=== PATIENT | female | born 2005 | race African-American/Black ===

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

== ENCOUNTER 2025-02-09 12:06 | Outpatient (CLI) | payer OTHER, SELFPAY ==
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
[2025-02-09 13:31] LABS: Hematocrit 34.7 % (37.0-47.0); Hemoglobin 10.9 g/dL (12.0-15.0); Mean Corpuscular HGB Conc 31.4 g/dl (32-36); Mean Corpuscular Hemoglobin 23.6 pg (26-34); Mean Corpuscular Volume 75.1 fl (80-100); Mean Platelet Volume 11.3 fl (7.4-10.4); Platelet Count Result 209 k/mm3 (150-375); Red Blood Count 4.62 M/mm3 (4.2-5.4); Red Cell Distribution Width 17.4 % (11.5-14.5); White Blood Count 9.1 K/mm3 (4.5-10.0)
[2025-02-09 13:39] LABS: Glucose 1 Hour PP 50gm Dose 120 mg/dL
[2025-02-09 14:02] LABS: Iron 44 ug/dL (37-170)
[2025-02-09 14:11] LABS: Percent Iron Saturation 11 % (20-50)
[2025-02-09 14:20] LABS: HIV 1/2 Ab P24 Ag Result Negative (Negative)
[2025-02-09 14:27] LABS: Syphilis IgG/IgM Antibody Negative (Negative)
[2025-02-13 17:43] LABS: Hepatitis B DNA PCR NOT DETECTED (NOT DETECTED); Hepatitis B DNA PCR NOT DETECTED Log IU/mL (NOT DETECTED)
== END 2025-02-09 12:07 | disposition home or self-care (01) ==
LOC: ANHLAB 12:07
PROVIDERS: Visit Provider Student in an Organized Health Care Education/Training Program
DX: O99.019 Anemia complicating pregnancy, unspecified trimester (principal); Z3A.00 Weeks of gestation of pregnancy not specified; R76.8 Other specified abnormal immunological findings in serum; Z39.0 Encounter for care and examination of mother immediately after delivery
CPT/HCPCS: 36415; 82947; 83540; 83550; 85027; 86593; 86703; 87517; G0432

== ENCOUNTER 2025-03-11 04:57 | Outpatient (CLI) | payer OTHER, SELFPAY ==
--- OUTSIDE RECORDS SUMMARY | 2025-03-11 02:35 | XMS_ITS | Clinical Summary ---
Author Organization [facility] Address [address] [place] [address] Care Team Providers Care Mail Distribution Clerk Name Role Phone Unavailable Primary Care Provider Unavailabl e Source Comments [facility],non-owned Affiliates and Associated Physician Practices is amultiple site organization consisting of ambulatory clinics and hospital sitesin [place], [place], [place] and [place]. This disclosure is being madepursuant to the Care Everywhere program and may not contain all information available regarding this patient. Last updated 18.[facility] Allergies No known active allergies Medications * This document contains information received from the source organization and may not represent a complete record from that organization. * Be aware that medications may not be up to date on this document. Alwaysverify current medications with the patient. Vit-DSS-Fe Fum-FA ( vitamin with iron) tablet Take 1 (one) tablet by mouth once daily Active ferrous sulfate 325 (65 FE) MG tablet Take 1 (one) tablet by mouth once daily Active aspirin (Aspirin) 81 MG chew tabletIndicatio ns:Preeclampsia Take 2 (two) tablets by mouth once daily Reasons: Increased Blood Pressure and Edema During 100 tablet 4 Active Active Problems Problem Noted Date Diagnosed [...] 12/23/2021 Assessment & Plan (12/26/2021 4:15 PM [facility]): Assessment: Charles is a 16 year old female who [...] afternoon Assessment & Plan (12/25/2021 1:34 PM [facility]): Assessment: Charles is a 16 year old female who [...] facility Assessment & Plan (12/24/2021 3:46 PM [facility]): Assessment: Charles is a 16 year old female who [...] consultation Assessment & Plan (12/23/2021 10:40 PM [facility]): Assessment: Charles is a 16 year old female who [...] 12/23/2021 Assessment & Plan (12/26/2021 4:15 PM [facility]): Assessment: Karans CBC with a low hemoglobin [...] persists Assessment & Plan (12/25/2021 1:35 PM [facility]): Assessment: Karans CBC with a low hemoglobin [...] persists Assessment & Plan (12/24/2021 1:33 PM [facility]): Assessment: Julio César CBC with a low hemoglobin (8.8) and low MCV is concerning for iron deficiency anemia. This is likely due to inadequate dietary intake of iron. Plan: - start MVI with iron - nutrition consultation Assessment & Plan (12/23/2021 10:41 PM [facility]): Assessment: Julio César CBC with a low [...] 01/06/2022 Assessment & Plan (12/26/2021 4:17 PM [facility]): Assessment: Karans initial UA at the outside hospital was concerning for a UTI with nitrites and some WBC with repeat UA at [facility] negative for nitrites but with evidence of pyuria with WBC and urine culture grew >100k cfus e coli. Plan to treat with course of nitrofurantoin. Plan: - Prescription for course of nitrofurantoin provided to continue at discharge Assessment & Plan (12/25/2021 1:35 PM [facility]): Assessment: Karans initial UA at the outside hospital was concerning for a UTI with nitrites and some WBC, however, there were many squamous epithelial cells present which makes the specimen less reliable. She is not currently complaining of symptoms of a UTI. Repeat UA here was negative for LE and nitrites. Plan: - continue to monitor - Urine culture at [facility] pending Assessment & Plan (12/24/2021 1:33 PM [facility]): Assessment: Charles's initial UA at the outside hospital was concerning for a UTI, however, there were many squamous epithelial cells present which makes the specimen less reliable. She is not currently complaining of symptoms of a UTI. Repeat UA here was negative for LE and nitrites. Plan: - continue to monitor Assessment & Plan (12/23/2021 10:42 PM [facility]): Assessment: Charles's initial UA at the outside hospital was concerning for a UTI, however, there were many squamous epithelial cells present which makes the specimen less reliable. She is not currently complaining of symptoms of a UTI. Plan: - repeat UA with reflex to culture here - consider treating for UTI if repeat UA concerning Encounters Date Type Department Care Team Description 02/12/2025 9:45 AM CDT - 02/12/2025 11:59 PM CDT Hospital Encounter [facility] [address] [place] [phone] Savage Contreras MD Discharge Disposition: Home or Self Care 01/15/2025 9:45 AM [facility] - 01/15/2025 11:59 PM [facility] Hospital Encounter [facility] [address] [place] [phone] Savage Contreras MD Discharge Disposition: Home or Self Care 12/19/2024 Refill [facility] [address] [place] [address] [address] [place] [address] Valeriy Brooks, Refill Request 12/11/2024 9:00 AM [facility] - 12/11/2024 11:59 PM [facility] Hospital Encounter [facility] [address] [place] [phone] Head, Eva Magaña MD Discharge Disposition: Home or Self Care from Last 3 Months Immunizations Immunization Administration Dates Next Due DTAP/IPV 06/02/2010 DTaP VACCINE IM (6wk-6yrs) 09/27/2006,,2005, 5 HEP A PEDS 2 DOSE 03/25/2009,06/13/2007 HEP B VACCINE, PED/ADOL 2005,07/21,2005, 5 HIB BOOSTER 07/13/2006, 5,2005, 5 MENINGOCOCCAL ACWY (MCV4P) VAC IM 04/30/2021, MMR 03/25/2009,03/04/2006 PNEUMOCOCCAL CONJ, PEDS 03/04/2006,09/14,2005, 5 POLIO IPV 2005,2005,2005 PPD 07/15/2009,03/04/2006 TDAP (7yrs+) [...] Recorded Sex Assigned at Not on file Legal Sex Female 5:44 AM [facility] Gender Identity Not on file Sexual Orientation Not on file Last Filed Vital Signs Vital Sign Reading Time Taken Comments Blood Pressure 122/55 11/13/2024 10:36 AM [facility] Pulse 71 11/13/2024 10:36 AM [facility] Temperature 36.3 C (97.4 F) 03/05/2022 2:12 PM CDT Respiratory Rate 16 12/31/2021 1:57 PM [facility] Oxygen Saturation 100% 12/31/2021 1:57 PM [facility] Inhaled Oxygen Concentration - - Weight 113.4 kg (250 lb) 11/13/2024 10:36 AM [facility] Height 168.9 cm (5' 6.5 ) 11/13/2024 10:36 AM CS T Body Mass Index 39.75 11/13/2024 10:36 AM [facility] Plan of Treatment Health Maintenance Due Date Last Done Comments PNEUMOCOCCAL VACCINE (1 of 1 - PPSV23) 2011 03/04/2006, 2005, 2005, Additional history exists MENINGOCOCCAL (Group B) VACC INE SHARED DECISION-MAKING (1 of 2 - Standard) 2021 CHLAMYDIA/GONORRHEA SCREENING 01/27/2023 01/27/2022, 12/28/2021 HEPATITIS C SCREENING 02/21/2023 COVID-19 VACCINE (3 - 2023-2 5 season) 2024 07/10/2021, 06/19/2021 DEPRESSION SCREENING 11/22/2024 OB-ONE HOUR GLUCOSE 01/13/2025 OB-TDAP CURRENT 01/20/2025 03/04/2015 OB-RHOGAM INJECTION 01/27/2025 DTAP/TDAP/TD VACCINES (7 - T d or Tdap) 03/04/2025 03/04/2015, 06/02/2010, 09/27/2006, Additional history exists OB-GROUP B STREP SCREEN 03/17/2025 INFLUENZA VACCINE (Season Ended) 2025 ZOSTER VACCINE (1 of 2) 2055 HEPATITIS [...] Where can I go for more information? [place] [employer] ( ) www.aap.org HealthyChildren.org www.healthychildren.org U.S. Department of Health and Human Services www.hhs.gov Website and free downloadable frankie for Tripnarys: http://www.MyCoop/ Use safety retraint in car Lifestyle On track( 022 2:08 PM CDT) No Bailey Tomlinson RN Procedures Procedure Name Priority Date/Time Associated Diagnosis Comments SONOGRAM - COMPLETE Routine 02/12/2025 9:41 AM CDT Liver and biliary tract disorders in , second trimester (HCC): hepeattis B surface antigen positive BMI 39.0-39.9,adult Anemia complicating in second trimester 29 weeks gestation of Encounter for follow-up ultrasound of anatomy Encounter for ultrasound to assess growth [place]-Schlatter's disease, right SONOGRAM - COMPLETE Routine 01/15/2025 9:36 AM [facility] Liver and biliary tract disorders in , second trimester (HCC): hepeattis B surface antigen positive Anemia complicating in second trimester High risk teen , antepartum BMI 39.0-39.9,adult 25 weeks gestation of SONOGRAM - COMPLETE Routine 12/11/2024 9:07 AM [facility] Severe obesity due to excess calories affecting in second trimester Anemia complicating in second trimester High risk teen , antepartum Encounter for follow-up ultrasound of anatomy Encounter for ultrasound to assess growth Encounter for screening for cervical length CHLAMYDIA + GC AMPLIFIED PROBE Routine 01/27/2022 4:24 PM [facility] Hx of chlamydia infection HIV-1 HIV-2 ANTIBODY + HIV P24 AG PANEL AM Draw 12/28/2021 6:25 AM [facility] from Last 3 Months or Most Recently Relevant to Health Maintenance Results * SONOGRAM - COMPLETE (02/12/2025 9:41 AM CDT) Only the most recent of3 resultswithin the time period is included. Linked Results Indication ======== Obesity, Class III Positive Hepatitis B Antibody and Antigen, negative viral quant. Anemia History ====== OB History 1 Lab Tests Test Date Result Genetic screening Declined Maternal Assessment Physical Exam Height 168 cm, 5 ft 6 in. Weight 120 kg, 264 lb. Initial weight 112 kg, 247 lb. BMI 42.61 kg/m . Initial BMI 39.87 kg/m . Weight gain 8 kg, 17 lb Method ====== Transabdominal ultrasound. View: Sufficient ========= Truong . Number of fetuses: 1 Dating ====== Date Details Gest. age LILI LMP 07/15/2024 30 w + 2 d 04/21/2025 Stated LILI 30 w + 2 d 04/21/2025 U/S 02/12/2025 based upon AC, BPD, Femur, HC 29 w + 4 d 04/26/2025 Assigned dating based on the LMP, selected on 11/13/2024 30 w + 2 d 04/21/2025 General Evaluation Cardiac activity present. FHR 141 bpm. Presentation: cephalic Placenta: Placental site: anterior Umbilical cord: Cord vessels: 3 vessel cord. Insertion site: normal insertion Amniotic fluid: Amount of AF: normal. MVP 4.6 cm. RODY 16.3 cm. Q1 4.6 cm, Q2 4.0 cm, Q3 4.2 cm, Q4 3.6 cm Biometry BPD 72.0 mm 28w 6d 7% Hadlock HC 273.1 mm 29w 6d 8% Hadlock AC 257.6 mm 29w 6d 34% Hadlock Femur 55.9 mm 29w 3d 15% Hadlock Humerus 55.1 mm 32w 0d 89% Redd HC / AC 1.06 Weight Calculation: EFW 1,434 g 20% Hadlock EFW (lb,oz) 3 lb 3 oz EFW by Hadlock (FPR-NT-LI-FL) appropriate Growth Overview Exam date GA BPD (mm) HC (mm) AC (mm) FL (mm) HL (mm) EFW (g) 11/13/2024 17w 2d 34.2 18% 126.8 7% 109.8 34% 22.9 29% 28.1 97% 170 19% 12/11/2024 21w 2d 46.4 8% 174.7 4% 158.1 32% 34.1 22% 35.9 83% 373 19% 01/15/2025 26w 2d 61.3 6% 232 4% 212.3 25% 45.7 9% 47.8 91% 810 13% 02/12/2025 30w 2d 72 7% 273.1 8% 257.6 34% 55.9 15% 55.1 89% 1434 20% Anatomy The following structures appear normal: Heart / Thorax 5-[id number] view. Abdomen Stomach. Kidneys. Bladder. The following structures were documented previously: Head / Neck Cranium. Lateral ventricles. Choroid plexus. Midline falx. Cavum septi pellucidi. Cerebellum. Cisterna magna. Thalami. Nuchal fold. Face Lips. Profile. Nose. Nasal bone. Orbits. Heart / Thorax 4-chamber view. RVOT view. LVOT view. 3-vessel view. Situs. Aortic arch view. Bicaval view. Ductal arch view. Great vessels. Right lung. Left lung. Diaphragm. Abdomen Cord insertion. Bowel. Genitals. Spine Cervical spine. Thoracic spine. Lumbar spine. Sacral spine. Extremities / Skeleton Arms. Hands. Legs. Feet. sex: male. Impression ========= Single, live, intrauterine at 30w 2d size is appropriate Amniotic fluid volume: normal No major malformations were seen within the limitations of ultrasound Follow-up ======== Follow up ultrasound in 4 weeks for growth assessment Coding ====== Procedures [id number]: US Preg Uterus Follow Up hreefold Photos PACS Anatomical Region Laterality Modality Other 02/12/2025 9:41 AM CDT us Edouard Abraham MD [facility] ORDERABLES Edited Result - Final * CHLAMYDIA + GC AMPLIFIED PROBE (01/27/2022 4:24 PM [facility]) Pathologist [facility] Chlamydia KADIE Urine Negative Negative [facility] INSURANCE BILL GC KADIE Urine Negative Negative [facility] INSURANCE BILL Microbiology URINE / Unknown 01/27/2022 4 :24 PM [facility] 01/28/2022 Narrative Resulting Agency Comment Lab Testing performed at: [address] [phone] [place] Juliet Agustin MD LAB - MICROBIOLOGY ORDERABLES Final Result [facility] INSURANCE BILL [address] [address] * HIV-1 HIV-2 ANTIBODY + HIV P24 AG PANEL (12/28/2021 6:25 AM [facility]) HIV1/2 Ab + P24 Ag Non Reactive Non Reactive 12/28/2021 6:30 PM [facility] Blood BLOOD SPECIMEN / Unknown Lab Venipuncture / Unknown 12/28/2021 6:25 AM [facility] 12/28/2021 7:30 AM [facility] Narrative [facility] - 12/28/2021 6:30 PM [facility] No Laboratory evidence of HIV infection. Faith Sommer MD LAB - CHEMISTRY ORDERABLES Final Result Performing Organization Address City/State/[facility] Co de Phone Number [facility] [address] [place] [address] from Last 3 Months or Most Recently Relevant to Health Maintenance Insurance [facility] * Guarantor: CHARLES AN Account Type Relation to Patient Date of Phone Billing Address Personal/Family [address] [place] [address] Advance Directives * Full Code (Latest Code Status on File) Date Activated Date Inactivated Comments 12/26/2021 4:57 PM 12/31/2021 5:12 PM * Full Code Date Activated Date Inactivated Comments 12/23/2021 8:34 PM 12/26/2021 4:45 PM
[2025-03-11 02:47] VITALS: BP 147/82; PULSE 90; RESP 15; TEMP 36.4; O2SAT 100
[2025-03-11 03:30] LABS: Basophils Percent Auto 0.2 % (0.2-1.2); Eosinophils Absolute Auto 0.1 K/mm3 (0-0.3); Hematocrit 36.2 % (37.0-47.0); Hemoglobin 10.9 g/dL (12.0-15.0); Immature Granulocyte Absolute 0.06 K/mm3 (0.00-0.031); Immature Granulocyte Percent A 0.5 % (0-0.5); Lymphocytes Absolute Auto 1.57 K/mm3 (0.9-3.2); Lymphocytes Percent Auto 12.6 % (18.3-44.2); Mean Corpuscular HGB Conc 30.1 g/dl (32-36); Mean Corpuscular Volume 76.5 fl (80-100); Mean Platelet Volume 11.3 fl (7.4-10.4); Monocytes Absolute Auto 0.8 K/mm3 (0.1-0.6); Monocytes Percent Auto 6.4 % (2.6-8.5); Neutrophils Absolute Auto 9.8 K/mm3 (1.3-6.7); Neutrophils Percent Auto 79.3 % (45.5-73.1); Platelet Count Result 206 k/mm3 (150-375); Red Blood Count 4.73 M/mm3 (4.2-5.4); Red Cell Distribution Width 16.9 % (11.5-14.5); White Blood Count 12.4 K/mm3 (4.5-10.0)
[2025-03-11] MEDS: ACETAMINOPHEN 500 MG TABLET 1000 MG PO (03:30)
[2025-03-11] MEDS: diphenhydrAMINE HCl INJ 50 MG/ML VIAL 25 MG IV PUSH (03:30)
[2025-03-11] MEDS: METOCLOPRAMIDE HCL INJ 10 MG/2 ML VIAL IV PUSH (03:31)
--- NOTE | 2025-03-11 03:32 | ED_ITS ---
HPI - General Adult General Chief complaint: Headache Stated complaint: headache Time Seen by Provider: 03/11/25 02:50 History of Present Illness HPI narrative: Patient is a 20 year old female who presents the emergency department this evening with headache, nausea vomiting and blurry vision. Patient states that she is achy all over. Feels nauseous,. Difficult to obtain history from the patient as she just feels uncomfortable and is a poor historian. Patient is approximately a month , sees Dr. Abraham as her OBGYN. States that her symptoms started yesterday around 6:00 p.m.. States that they have been monitoring her blood pressure through this but she was not told that she was preeclamptic or started on any medications for blood pressure. Related Data Home Medications ?Medication ?Instructions ?Recorded ?Confirmed ?Last Taken ?Type aspirin 81 mg tablet,delayed 81 mg PO DAILY 11/24/24 02/28/25 Unknown History release (Adult Low Dose Aspirin) Allergies Allergy/AdvReac Type Severity Reaction Status Date / Time No Known Allergies Allergy Verified 03/11/25 02:34 Review of Systems 2 Review of Systems: All systems are reviewed and are negative unless stated otherwise in the HPI. [facility] Past Medical History Medical History Healthy female adult Surgical History Surgical History No history of previous surgery Social History Social History Smoking status: Former smoker Tobacco type: e-cigarettes/vaping Alcohol intake: never Substance use: never Substance use type: does not use Do You Feel Safe in your Home?: Yes Lack of Transportation: No Lack of Food: Never True Current Housing: Decline to Answer Concerned About Future Housing: Decline to Answer Difficulty Paying Gas/Electric Bills: Decline to Answer Difficulty Paying for Meds: Decline to Answer Currently Unemployed: Decline to Answer Education: Decline to Answer Difficulty w/ Childcare or Family Care: Decline to Answer Living arrangements: with family Occupation/Education: occupation Gender identity (if verbalized by the patient): Female Sexual Orientation (if Verbalized by the Patient): Straight or Heterosexual Exam 2 Narrative: General: Alert, awake, afebrile, uncomfortable. HEENT: PERRL, no rhinorrhea, no post nasal drip, oropharynx clear. Neck: Trachea midline, no JVD, no lymphadenopathy. Cardiovascular: Regular rate and rhythm, no murmurs, rubs or gallops, no peripheral edema. Respiratory: Clear to auscultation bilaterally, no tachypnea, no wheezing, no rhonchi, no rubs, no respiratory distress. Abdomen: Gravid, nontender, nondistended, no rebound, no guarding, no peritoneal signs. Musculoskeletal: No joint swelling or deformity, normal muscle tone. Skin: No rashes or petechia, no signs of infection. Psychiatric: Alert and oriented, normal behavior and judgment for situation. Neurological: Alert and oriented to person, place, and time. Follows all commands. No focal deficits, speech is clear and fluent. Course Vital Signs Vital signs: Vital Signs Temperature 97.6 F 03/11/25 02:47 Pulse Rate 90 03/11/25 02:47 Respiratory Rate 15 03/11/25 02:47 Blood Pressure 147/82 H 03/11/25 02:47 Pulse Oximetry 100 03/11/25 02:47 Oxygen Delivery Room Air 03/11/25 02:47 Temperature 97.6 F 03/11/25 02:47 Pulse Rate 84 03/11/25 03:40 Respiratory Rate 15 03/11/25 03:40 Blood Pressure 142/84 H 03/11/25 03:40 Pulse Oximetry 99 03/11/25 03:40 Oxygen Delivery Room Air 03/11/25 02:47 Medical Decision Making [facility] Narrative Medical decision making narrative: The patient was evaluated by myself in the emergency department. History is obtained from patient who is an independent historian and physical exam was performed. External medical records were reviewed at this time. IV was established and pertinent tests were ordered. Patient was administered 1 L IV fluid bolus with normal saline, a g of Tylenol, 10 mg of IV Reglan and 25 mg of IV Benadryl. Laboratory results obtained revealing a leukocytosis of 12.4, otherwise unremarkable. LDH noted to be normal at 149, uric acid normal 3.9, magnesium level 1.8. Urinalysis pending. Differential diagnosis considerations include preeclampsia, dehydration, acute viral syndrome. Comorbidities impacting this visit include current 3rd trimester . I have evaluated and discussed social determinants of health with the patient that could potentially impact subsequent diagnosis and treatment plans. In the emergency department, patient's blood pressure fluctuates anywhere between 130/70 to 157/126 mmHg. Patient was sent to [facility] at this time due to concern for preeclampsia. Vital Signs Vital Signs: Vital Signs Temperature 97.6 F 03/11/25 02:47 Pulse Rate 90 03/11/25 02:47 Respiratory Rate 15 03/11/25 02:47 Blood Pressure 147/82 H 03/11/25 02:47 Pulse Oximetry 100 03/11/25 02:47 Oxygen Delivery Room Air 03/11/25 02:47 Temperature 97.6 F 03/11/25 02:47 Pulse Rate 84 03/11/25 03:40 Respiratory Rate 15 03/11/25 03:40 Blood Pressure 142/84 H 03/11/25 03:40 Pulse Oximetry 99 03/11/25 03:40 Oxygen Delivery Room Air 03/11/25 02:47 Lab Data 03/11/25 03:24 03/11/25 03:24 Labs: Lab Results 03/11/25 Range/Units 03:24 WBC 12.4 H (4.5-10.0) K/mm3 RBC 4.73 (4.2-5.4) M/mm3 Hgb 10.9 L (12.0-15.0) g/dL Hct 36.2 L (37.0-47.0) % MCV 76.5 L (80-100) fl MCH 23.0 L (26-34) pg MCHC 30.1 L (32-36) g/dl RDW 16.9 H (11.5-14.5) % Plt Count 206 (150-375) k/mm3 MPV 11.3 H (7.4-10.4) fl Immature Gran % (Auto) 0.5 (0-0.5) % Neut % (Auto) 79.3 H (45.5-73.1) % Lymph % (Auto) 12.6 L (18.3-44.2) % [place] % (Auto) 6.4 (2.6-8.5) % Eos % (Auto) 1.0 (0-4.4) % Baso % (Auto) 0.2 (0.2-1.2) % Lymph # (Auto) 1.57 (0.9-3.2) K/mm3 [place] # (Auto) 0.8 H (0.1-0.6) K/mm3 Eos # (Auto) 0.1 (0-0.3) K/mm3 Baso # (Auto) 0.0 (0.0-0.1) K/mm3 Abs Immat Gran (auto) 0.06 H (0.00-0.031) K/mm3 Absolute Neuts (auto) 9.8 H (1.3-6.7) K/mm3 Absolute Nucleated RBC 0.000 (0.0-0.012) K/mm3 Nucleated RBC % 0.0 (0.0-0.2) % Sodium 139 (137-145) mmol/L Potassium 3.8 (3.4-5.0) mmol/L Chloride 105 (98-107) mmol/L Carbon Dioxide 24 (22-30) mmol/L Anion Gap 10 (4-12) mmol/L BUN 4 L (7-17) mg/dL Creatinine 0.54 L (0.7-1.0) mg/dL Estim Creat Clear Calc 190 ml/min Estimated GFR > 60 (59 - ) Glucose 104 (65-110) mg/dL Uric Acid 3.9 (2.5-7.5) mg/dL Calcium 9.4 (8.4-10.2) mg/dL Magnesium 1.8 (1.6-2.3) mg/dL Total Bilirubin 0.2 (0.2-1.3) mg/dL AST 25 (14-36) U/L ALT 17 (6-35) U/L Alkaline Phosphatase 90 (38-126) U/L Lactate Dehydrogenase 149 (120-246) U/L Total Protein 7.0 (6.3-8.2) g/dL Albumin 3.9 (3.5-5.1) g/dL Discharge Plan Discharge Clinical Impression: Hypertension, Migraine, Vision changes, Pre-eclampsia Patient Disposition: Still a Patient Condition: Stable Patient Language: Slovak Prescriptions: No Action ferrous sulfate 324 mg (65 mg iron) tablet,delayed release (DR/EC) 324 mg PO DAILY Qty: 30 3RF PNV #[id number] 30 mg iron-10 mg iron-1 mg capsule 1 cap PO DAILY Qty: 30 3RF Rx Instructions: Any brand of is fine. aspirin [Adult Low Dose Aspirin] 81 mg tablet,delayed release (DR/EC) 81 mg PO DAILY triamcinolone acetonide 0.025 % lotion 1 applic topical BID Qty: 60 0RF Follow-up/Referrals: PHYSICIAN,MEDICAL SCIENTIST [Primary Care Provider] - Time of Disposition: 04:44
[2025-03-11] MEDS: SODIUM CHLORIDE 0.9% IV 1,000 ML 999 ML IV CONT (03:33)
[2025-03-11 03:40] VITALS: BP 142/84; PULSE 84; RESP 15; O2SAT 99
[2025-03-11 03:47] LABS: Alanine Aminotransferase 17 U/L (6-35); Albumin Level 3.9 g/dL (3.5-5.1); Alkaline Phosphatase 90 U/L (38-126); Anion Gap 10 mmol/L (4-12); Aspartate Amino Transferase 25 U/L (14-36); Bilirubin,Total 0.2 mg/dL (0.2-1.3); Blood Urea Nitrogen 4 mg/dL (7-17); Calcium 9.4 mg/dL (8.4-10.2); Carbon Dioxide 24 mmol/L (22-30); Chloride 105 mmol/L (98-107); Estimated CRCL calculation 190 ml/min; Estimated Glomerular Filt Rate > 60; Glucose 104 mg/dL (65-110); Lactate Dehydrogenase 149 U/L (120-246); Magnesium 1.8 mg/dL (1.6-2.3); Potassium 3.8 mmol/L (3.4-5.0); Sodium 139 mmol/L (137-145); Uric Acid 3.9 mg/dL (2.5-7.5)
[2025-03-11 04:59] VITALS: BP 101/64; PULSE 88; RESP 16; O2SAT 98
--- OUTSIDE RECORDS SUMMARY | 2025-03-11 05:09 | XMS_ITS | Clinical Summary ---
Author Organization [facility] Address [address] [place] [address] Care Team Providers Care Instructional Technology Specialist Name Role Phone Unavailable Primary Care Provider Unavailabl e Source Comments [facility],non-owned Affiliates and Associated Physician Practices is amultiple site organization consisting of ambulatory clinics and hospital sitesin [place], [place], [place] and [place]. This disclosure is being madepursuant to the Care Everywhere program and may not contain all information available regarding this patient. Last updated 18.[facility] Allergies No known active allergies Medications * [...] 12/23/2021 Assessment & Plan (12/26/2021 4:15 PM ADAPTED PHYSICAL EDUCATION TEACHER): Assessment: Charles is a 16 year old [...] afternoon Assessment & Plan (12/25/2021 1:34 PM ADAPTED PHYSICAL EDUCATION TEACHER): Assessment: Charles is a 16 year old [...] facility Assessment & Plan (12/24/2021 3:46 PM ADAPTED PHYSICAL EDUCATION TEACHER): Assessment: Charles is a 16 year old [...] consultation Assessment & Plan (12/23/2021 10:40 PM ADAPTED PHYSICAL EDUCATION TEACHER): Assessment: Charles is a 16 year old [...] 12/23/2021 Assessment & Plan (12/26/2021 4:15 PM ADAPTED PHYSICAL EDUCATION TEACHER): Assessment: Karans CBC with a low hemoglobin [...] persists Assessment & Plan (12/25/2021 1:35 PM ADAPTED PHYSICAL EDUCATION TEACHER): Assessment: Karans CBC with a low hemoglobin [...] persists Assessment & Plan (12/24/2021 1:33 PM ADAPTED PHYSICAL EDUCATION TEACHER): Assessment: Julio César CBC with a low hemoglobin (8.8) and low MCV is concerning for iron deficiency anemia. This is likely due to inadequate dietary intake of iron. Plan: - start MVI with iron - nutrition consultation Assessment & Plan (12/23/2021 10:41 PM ADAPTED PHYSICAL EDUCATION TEACHER): Assessment: Julio César CBC with a low [...] 01/06/2022 Assessment & Plan (12/26/2021 4:17 PM ADAPTED PHYSICAL EDUCATION TEACHER): Assessment: Karans initial UA at the outside hospital was concerning for a UTI with nitrites and some WBC with repeat UA at [facility] negative for nitrites but with evidence of pyuria with WBC and urine culture grew >100k cfus e coli. Plan to treat with course of nitrofurantoin. Plan: - Prescription for course of nitrofurantoin provided to continue at discharge Assessment & Plan (12/25/2021 1:35 PM ADAPTED PHYSICAL EDUCATION TEACHER): Assessment: Karans initial UA at the outside hospital was concerning for a UTI with nitrites and some WBC, however, there were many squamous epithelial cells present which makes the specimen less reliable. She is not currently complaining of symptoms of a UTI. Repeat UA here was negative for LE and nitrites. Plan: - continue to monitor - Urine culture at [facility] pending Assessment & Plan (12/24/2021 1:33 PM ADAPTED PHYSICAL EDUCATION TEACHER): Assessment: Charles's initial UA at the outside hospital was concerning for a UTI, however, there were many squamous epithelial cells present which makes the specimen less reliable. She is not currently complaining of symptoms of a UTI. Repeat UA here was negative for LE and nitrites. Plan: - continue to monitor Assessment & Plan (12/23/2021 10:42 PM ADAPTED PHYSICAL EDUCATION TEACHER): Assessment: Charles's initial UA at the outside [...] - 02/12/2025 11:59 PM CDT Hospital Encounter [facility] [address] [place] [id number] Savage Contreras MD Discharge Disposition: Home or Self Care 01/15/2025 9:45 AM ADAPTED PHYSICAL EDUCATION TEACHER - 01/15/2025 11:59 PM ADAPTED PHYSICAL EDUCATION TEACHER Hospital Encounter [facility] [address] [place] [phone] Savage Contreras MD Discharge Disposition: Home or Self Care 12/19/2024 Refill [facility] [address] [place] [address] [address] [place] [address] Valeriy Brooks, Refill Request 12/11/2024 9:00 AM ADAPTED PHYSICAL EDUCATION TEACHER - 12/11/2024 11:59 PM ADAPTED PHYSICAL EDUCATION TEACHER Hospital Encounter [facility] [address] [place] [id number] Head, Eva Magaña MD Discharge Disposition: Home [...] on file Legal Sex Female 5:44 AM ADAPTED PHYSICAL EDUCATION TEACHER Gender Identity Not on file Sexual Orientation Not on file Last Filed Vital Signs Vital Sign Reading Time Taken Comments Blood Pressure 122/55 11/13/2024 10:36 AM ADAPTED PHYSICAL EDUCATION TEACHER Pulse 71 11/13/2024 10:36 AM ADAPTED PHYSICAL EDUCATION TEACHER Temperature 36.3 C (97.4 F) 03/05/2022 2:12 PM CDT Respiratory Rate 16 12/31/2021 1:57 PM ADAPTED PHYSICAL EDUCATION TEACHER Oxygen Saturation 100% 12/31/2021 1:57 PM ADAPTED PHYSICAL EDUCATION TEACHER Inhaled Oxygen Concentration - - Weight 113.4 kg (250 lb) 11/13/2024 10:36 AM ADAPTED PHYSICAL EDUCATION TEACHER Height 168.9 cm (5' 6.5 ) 11/13/2024 10:36 AM CS T Body Mass Index 39.75 11/13/2024 10:36 AM ADAPTED PHYSICAL EDUCATION TEACHER Plan of Treatment Health Maintenance Due Date [...] Where can I go for more information? [place] [employer] ( ) www.aap.org HealthyChildren.org www.healthychildren.org U.S. Department of Health and Human Services www.hhs.gov Website and free downloadable frankie for Q[employer]: http://www.[employer]/ Use safety retraint in car Lifestyle On [...] anatomy Encounter for ultrasound to assess growth [place]-Schlatter's disease, right SONOGRAM - COMPLETE Routine 01/15/2025 9:36 AM ADAPTED PHYSICAL EDUCATION TEACHER Liver and biliary tract disorders in , second trimester (HCC): hepeattis B surface antigen positive Anemia complicating in second trimester High risk teen , antepartum BMI 39.0-39.9,adult 25 weeks gestation of SONOGRAM - COMPLETE Routine 12/11/2024 9:07 AM ADAPTED PHYSICAL EDUCATION TEACHER Severe obesity due to excess calories affecting in second trimester Anemia complicating in second trimester High risk teen , antepartum Encounter for follow-up ultrasound of anatomy Encounter for ultrasound to assess growth Encounter for screening for cervical length CHLAMYDIA + GC AMPLIFIED PROBE Routine 01/27/2022 4:24 PM ADAPTED PHYSICAL EDUCATION TEACHER Hx of chlamydia infection HIV-1 HIV-2 ANTIBODY + HIV P24 AG PANEL AM Draw 12/28/2021 6:25 AM ADAPTED PHYSICAL EDUCATION TEACHER from Last 3 Months or Most Recently [...] 3 lb 3 oz EFW by Hadlock ([id number]) appropriate Growth Overview Exam date [place] BPD [...] following structures appear normal: Heart / Thorax 5-wvxomi-liscjhu view. Abdomen Stomach. Kidneys. Bladder. The following [...] weeks for growth assessment Coding ====== Procedures 15178: US Preg Uterus Follow Up [place] [facility] PACS Anatomical Region Laterality Modality Other 02/12/2025 9:41 AM CDT us Edouard Abraham MD [facility] ORDERABLES Edited Result - Final * CHLAMYDIA + GC AMPLIFIED PROBE (01/27/2022 4:24 PM ADAPTED PHYSICAL EDUCATION TEACHER) Pathologist [facility] Chlamydia KADIE Urine Negative Negative [facility] INSURANCE BILL GC KADIE Urine Negative Negative [facility] INSURANCE BILL Microbiology URINE / Unknown 01/27/2022 4 :24 PM ADAPTED PHYSICAL EDUCATION TEACHER 01/28/2022 Narrative Resulting Agency Comment Lab Testing performed at: [address] [id number] us Juliet Agustin MD LAB - MICROBIOLOGY ORDERABLES Final Result [facility] INSURANCE BILL [address] [address] * HIV-1 HIV-2 ANTIBODY + HIV P24 AG PANEL (12/28/2021 6:25 AM ADAPTED PHYSICAL EDUCATION TEACHER) HIV1/2 Ab + P24 Ag Non Reactive Non Reactive 12/28/2021 6:30 PM ADAPTED PHYSICAL EDUCATION TEACHER [facility] Blood BLOOD SPECIMEN / Unknown Lab Venipuncture / Unknown 12/28/2021 6:25 AM ADAPTED PHYSICAL EDUCATION TEACHER 12/28/2021 7:30 AM ADAPTED PHYSICAL EDUCATION TEACHER Narrative [facility] - 12/28/2021 6:30 PM ADAPTED PHYSICAL EDUCATION TEACHER No Laboratory evidence of HIV infection. Faith Sommer MD LAB - CHEMISTRY ORDERABLES Final Result Performing Organization Address City/State/[facility] Co de Phone Number [facility] [address] [place] [address] from Last 3 Months or Most Recently Relevant to Health Maintenance Insurance [facility] * Guarantor: CHARLES AN Account Type Relation to Patient Date of Phone Billing Address Personal/Family [address] [place] [address] Advance Directives * Full Code (Latest Code Status on File) Date Activated Date Inactivated Comments 12/26/2021 4:57 PM 12/31/2021 5:12 PM * Full Code Date Activated Date Inactivated Comments 12/23/2021 8:34 PM 12/26/2021 4:45 PM
[2025-03-11 06:14] LABS: Add Urine Microscopic? YES; Appearance Urine Clear (Clear); Bacteria Urine None Seen /hpf; Bilirubin Urine Negative (Negative); Blood Urine Negative (Negative); Color Urine Yellow (Yellow); Glucose Urine UA Negative (Negative); Ketones Urine Negative (Negative); Leukocyte Esterase Ur Trace LEU/UL (Negative); Nitrate Urine Negative (Negative); Non Pathogenic Casts 0-2; Protein Urine Negative (Negative); RBC Urine 0-2 /hpf (0-2); Specific Grav Ur 1.012 (1.001-1.035); Squamous Epithelial Cell Urine None Seen /hpf (Few); Urobilinogen Urine 0.2 mg/dL (<2.0); pH Urine 6.5 (5.0-9.0)
--- NOTE | 2025-03-11 06:50 | PC.NURSE ---
Upon entering the room, pt was sleeping. States she is feeling better. Explained waiting for urine results and will notify .
[2025-03-11 07:12] LABS: Creatinine Urine 79.1 mg/dL; Total Protein Urine Random 17 mg/dL; Ur Ttl Prot Creatinine Ratio 0.21 mg/mg (0-0.20)
== END 2025-03-11 08:00 | disposition still patient (30) ==
LOC: ANHOBOP 05:10 → ANHOBPP 05:24
PROVIDERS: Obstetrics & Gynecology; Visit Provider Emergency Medicine
DX: O13.9 Gestational [pregnancy-induced] hypertension without significant proteinuria, unspecified trimester (principal); Z3A.00 Weeks of gestation of pregnancy not specified
CPT/HCPCS: 36415; 59025; 80053; 81001; 82570; 83615; 83735; 84156; 84550; 85025; 87086; 96361; 96374; 96375; 99199; A9270; J1200; J2765; J7030

== ENCOUNTER 2025-03-14 04:25 | Observation (INO) | payer OTHER, SELFPAY ==
[2025-03-14] VITALS (11 sets, daily range): BP systolic 111–122; BP diastolic 57–64; PULSE 75–84; O2SAT 98–100; BMI 43.7
--- NOTE | 2025-03-14 04:30 | PC.NURSE ---
Pt is a presenting to unit with complaints of contractions that started at one am. Pt denies any complications this . Pt is unable to verbalize how often the contractions are occurring as well as describe the type of pain. Pt denies any leaking of fluid or vaginal bleeding and states she has good movement. Pt denies having vaginal intercourse in the past 24 hours. Pt states she drank some water today but is unable to give an amount. Pt denies history of UTI's or Kidney infections. Pt states that she is no longer in pain at the time of this note.
--- OUTSIDE RECORDS SUMMARY | 2025-03-14 04:32 | XMS_ITS | Clinical Summary ---
Author Organization [facility] Address [address] [place] [address] Care Team Providers Care Fugitive Detective Name Role Phone Unavailable Primary Care Provider Unavailabl e Source Comments [facility],non-owned Affiliates and Associated Physician Practices is amultiple site organization consisting of ambulatory clinics and hospital sitesin [place], [place], [place] and [place]. This disclosure is being madepursuant to the Care Everywhere program and may not contain all information available regarding this patient. Last updated 18.[facility] Allergies No known active allergies Medications * [...] 12/23/2021 Assessment & Plan (12/26/2021 4:15 PM COUNSELING SERVICES DIRECTOR): Assessment: Charles is a 16 year old [...] afternoon Assessment & Plan (12/25/2021 1:34 PM COUNSELING SERVICES DIRECTOR): Assessment: Charles is a 16 year old [...] facility Assessment & Plan (12/24/2021 3:46 PM COUNSELING SERVICES DIRECTOR): Assessment: Charles is a 16 year old [...] consultation Assessment & Plan (12/23/2021 10:40 PM COUNSELING SERVICES DIRECTOR): Assessment: Charles is a 16 year old [...] 12/23/2021 Assessment & Plan (12/26/2021 4:15 PM COUNSELING SERVICES DIRECTOR): Assessment: Karans CBC with a low hemoglobin [...] persists Assessment & Plan (12/25/2021 1:35 PM COUNSELING SERVICES DIRECTOR): Assessment: Karans CBC with a low hemoglobin [...] persists Assessment & Plan (12/24/2021 1:33 PM COUNSELING SERVICES DIRECTOR): Assessment: Julio César CBC with a low hemoglobin (8.8) and low MCV is concerning for iron deficiency anemia. This is likely due to inadequate dietary intake of iron. Plan: - start MVI with iron - nutrition consultation Assessment & Plan (12/23/2021 10:41 PM COUNSELING SERVICES DIRECTOR): Assessment: Julio César CBC with a low [...] 01/06/2022 Assessment & Plan (12/26/2021 4:17 PM COUNSELING SERVICES DIRECTOR): Assessment: Karans initial UA at the outside hospital was concerning for a UTI with nitrites and some WBC with repeat UA at [facility] negative for nitrites but with evidence of pyuria with WBC and urine culture grew >100k cfus e coli. Plan to treat with course of nitrofurantoin. Plan: - Prescription for course of nitrofurantoin provided to continue at discharge Assessment & Plan (12/25/2021 1:35 PM COUNSELING SERVICES DIRECTOR): Assessment: Karans initial UA at the outside hospital was concerning for a UTI with nitrites and some WBC, however, there were many squamous epithelial cells present which makes the specimen less reliable. She is not currently complaining of symptoms of a UTI. Repeat UA here was negative for LE and nitrites. Plan: - continue to monitor - Urine culture at [facility] pending Assessment & Plan (12/24/2021 1:33 PM COUNSELING SERVICES DIRECTOR): Assessment: Charles's initial UA at the outside hospital was concerning for a UTI, however, there were many squamous epithelial cells present which makes the specimen less reliable. She is not currently complaining of symptoms of a UTI. Repeat UA here was negative for LE and nitrites. Plan: - continue to monitor Assessment & Plan (12/23/2021 10:42 PM COUNSELING SERVICES DIRECTOR): Assessment: Charles's initial UA at the outside [...] - 02/12/2025 11:59 PM CDT Hospital Encounter [facility] [address] [place] [id number] Savage Contreras MD Discharge Disposition: Home or Self Care 01/15/2025 9:45 AM COUNSELING SERVICES DIRECTOR - 01/15/2025 11:59 PM COUNSELING SERVICES DIRECTOR Hospital Encounter [facility] [address] [place] [phone] Savage Contreras MD Discharge Disposition: Home or Self Care 12/19/2024 Refill [facility] [address] [place] [address] [address] [place] [address] Valeriy Brooks, Refill Request from Last 3 Months Immunizations Immunization Administration [...] on file Legal Sex Female 5:44 AM COUNSELING SERVICES DIRECTOR Gender Identity Not on file Sexual Orientation Not on file Last Filed Vital Signs Vital Sign Reading Time Taken Comments Blood Pressure 122/55 11/13/2024 10:36 AM COUNSELING SERVICES DIRECTOR Pulse 71 11/13/2024 10:36 AM COUNSELING SERVICES DIRECTOR Temperature 36.3 C (97.4 F) 03/05/2022 2:12 PM CDT Respiratory Rate 16 12/31/2021 1:57 PM COUNSELING SERVICES DIRECTOR Oxygen Saturation 100% 12/31/2021 1:57 PM COUNSELING SERVICES DIRECTOR Inhaled Oxygen Concentration - - Weight 113.4 kg (250 lb) 11/13/2024 10:36 AM COUNSELING SERVICES DIRECTOR Height 168.9 cm (5' 6.5 ) 11/13/2024 10:36 AM CS T Body Mass Index 39.75 11/13/2024 10:36 AM COUNSELING SERVICES DIRECTOR Plan of Treatment Health Maintenance Due Date Last Done Comments PNEUMOCOCCAL VACCINE (1 of 1 - PPSV23) 2011 03/04/2006, 2005, 2005, Additional history exists MENINGOCOCCAL (Group B) VACC INE SHARED DECISION-MAKING (1 of 2 - Standard) 2021 CHLAMYDIA/GONORRHEA SCREENING 01/27/2023 01/27/2022, 12/28/2021 HEPATITIS C SCREENING 02/21/2023 COVID-19 VACCINE (3 2023-2 5 season) 2024 07/10/2021, 06/19/2021 DEPRESSION [...] Where can I go for more information? [employer] ( ) www.aap.org HealthyChildren.org www.healthychildren.org U.S. Department of Health and Human Services www.hhs.gov Website and free downloadable frankie for smartphones: http://www.[employer]/ Use safety retraint in car Lifestyle On [...] anatomy Encounter for ultrasound to assess growth Anthony-Schlatter's disease, right SONOGRAM - COMPLETE Routine 01/15/2025 9:36 AM COUNSELING SERVICES DIRECTOR Liver and biliary tract disorders in , second trimester (HCC): hepeattis B surface antigen positive Anemia complicating in second trimester High risk teen , antepartum BMI 39.0-39.9,adult 25 weeks gestation of CHLAMYDIA + GC AMPLIFIED PROBE Routine 01/27/2022 4:24 PM COUNSELING SERVICES DIRECTOR Hx of chlamydia infection HIV-1 HIV-2 ANTIBODY + HIV P24 AG PANEL AM Draw 12/28/2021 6:25 AM COUNSELING SERVICES DIRECTOR from Last 3 Months or Most Recently Relevant to Health Maintenance Results * SONOGRAM - COMPLETE (02/12/2025 9:41 AM CDT) Only the most recent of2 resultswithin the time period is included. Linked [...] 3 lb 3 oz EFW by Hadlock ([id number]) appropriate Growth Overview Exam date [place] BPD [...] following structures appear normal: Heart / Thorax 7-dbuogf-mlntgaj view. Abdomen Stomach. Kidneys. Bladder. The following [...] weeks for growth assessment Coding ====== Procedures [id number]: [facility] An[facility] Laterality Modality Other 02/12/2025 9:41 AM CDT Edouard Abraham MD [facility] ORDERABLES Edited Result - Final * CHLAMYDIA + GC AMPLIFIED PROBE (01/27/2022 4:24 PM COUNSELING SERVICES DIRECTOR) Chlamydia KADIE Urine Negative Negative [facility] INSURANCE BILL GC KADIE Urine Negative Negative [facility] INSURANCE BILL Microbiology URINE / Unknown 01/27/2022 4 :24 PM COUNSELING SERVICES DIRECTOR 01/28/2022 Narrative Resulting Agency Comment Lab Testing performed at: [address] [id number] Juliet Agustin MD LAB - MICROBIOLOGY ORDERABLES Final Result [facility] INSURANCE BILL [address] [place] [address] * HIV-1 HIV-2 ANTIBODY + HIV P24 AG PANEL (12/28/2021 6:25 AM COUNSELING SERVICES DIRECTOR) HIV1/2 Ab + P24 Ag Non Reactive Non Reactive 12/28/2021 6:30 PM COUNSELING SERVICES DIRECTOR [facility] Blood BLOOD SPECIMEN / Unknown Lab Venipuncture / Unknown 12/28/2021 6:25 AM COUNSELING SERVICES DIRECTOR 12/28/2021 7:30 AM COUNSELING SERVICES DIRECTOR Narrative [facility] - 12/28/2021 6:30 PM COUNSELING SERVICES DIRECTOR No Laboratory evidence of HIV infection. Faith Sommer MD LAB - CHEMISTRY ORDERABLES Final Result [facility] [address] [place] [address] from Last 3 Months or Most Recently Relevant to Health Maintenance Insurance [facility] * Guarantor: CHARLES AN Account Type Relation to Patient Date of Phone Billing Address Personal/Family [address] [place] [address] Advance Directives * Full Code (Latest Code Status on File) Date Activated Date Inactivated Comments 12/26/2021 4:57 PM 12/31/2021 5:12 PM * Full Code Date Activated Date Inactivated Comments 12/23/2021 8:34 PM 12/26/2021 4:45 PM
--- NOTE | 2025-03-14 04:59 | OBADM ---
This patient, Jess An, admitted to the OB room OB Post 116 for observation. Patient/family oriented to hospital policies and general routines including ID bracelet, bed and alarms, visiting hours, pain management, procedures, bathroom and other care routines, personal items, smoking policy, room service/diet, and visiting hours. Patient/Family are encouraged to report perceived risks to care and to ask questions if they do not understand what they are told or what they should do.
[2025-03-14 05:07] LABS: Add Urine Microscopic? NO; Appearance Urine Clear (Clear); Bilirubin Urine Negative (Negative); Blood Urine Negative (Negative); Color Urine Yellow (Yellow); Glucose Urine UA Negative (Negative); Ketones Urine Negative (Negative); Leukocyte Esterase Ur Negative LEU/UL (Negative); Nitrate Urine Negative (Negative); Protein Urine Negative (Negative); Specific Grav Ur 1.011 (1.001-1.035); Urobilinogen Urine 0.2 mg/dL (<2.0); pH Urine 6.5 (5.0-9.0)
--- NOTE | 2025-03-14 05:32 | PC.NURSE ---
Dr. Shah responded to page. RN reported pts arrival to unit with complaints of contractions. RN reported reactive NST, absence of contractions, results of UA as well as pt stating pain has stopped. Orders received for discharge.
--- NOTE | 2025-03-15 11:19 | P.PNOB_ITS ---
OB - Triage/Final Diagnosis Visit Information Reason for evaluation: threatened labor Comments/Additional reasons for admission: I have assessed the risk for this patient, Jess An, and determined that she would benefit from observation care. Evaluation Laboratory results: Laboratory Tests 03/14/25 04:42 Urine Color Yellow Urine Appearance Clear Urine pH 6.5 Ur Specific [place] 1.011 Urine Protein Negative Urine Glucose (UA) Negative Urine Ketones Negative Ur Blood (Man) Negative Urine Nitrate Negative Urine Bilirubin Negative Urine Urobilinogen 0.2 Leukocyte Esterase Rfl Negative
== END 2025-03-14 05:48 | disposition home or self-care (01) ==
PROVIDERS: Admitting Provider Obstetrics & Gynecology; Visit Provider Obstetrics & Gynecology
DX: O47.03 False labor before 37 completed weeks of gestation, third trimester (principal); Z3A.34 34 weeks gestation of pregnancy
CPT/HCPCS: 59025; 81003; G0378; G0379

== ENCOUNTER 2025-03-22 15:01 | Outpatient (CLI) | payer OTHER, SELFPAY ==
--- NOTE | ~2025-03-22 | US_ITS ---
EXAMINATION: US OB follow up DATE: 03/22/2025 16:26 INDICATION: Assess growth and amniotic fluid index during third trimester TECHNIQUE: Real-time ultrasound of the pelvis was performed. The interpreting radiologist was not pre sent for the study. COMPARISON: None. FINDINGS: There is a single living fetus in vertex presentation. The placenta is anterior and not low-lying. S mall hypoechoic venous cabrales within the placenta. heart rate is 156 beats per minute (bpm). The amniotic fluid index is 12.3 cm, which is normal (5th%-95: 7.9-24.9 cm at 35 weeks estimated gestati onal age). Normal cervical length of 5.2 cm. The following biometric data were obtained: BPD: 8.3m -> 33 weeks 2 days Head circumference: 30.5 -> 34 weeks 0 days Abdominal circumference: 28.5 -> 32 weeks 4 days Femur length: 6.4m -> 33 weeks 2 days These measurements are concordant. Head circumference to abdominal circumference ratio: 1.07 (normal range 0.96-1.11). Estimated weight: 2090 g (+/-) 313 g or 4 lbs. 10 oz. (+/-) 11 oz. IMPRESSION: 1. Single living fetus in vertex presentation with heart rate of 156 bpm. 2. Normal amniotic fluid index of 12.3 cm. 3. Estimated weight is <3rd percentile by Hadlock criteria when 04/21/2025 is used as the estima janie date of delivery (LILI). Please correlate with clinical information or earlier ultrasounds for mos t accurate LILI. Reviewed, dictated and finalized at location A. IMPRESSION: 1. Single living fetus in vertex presentation with heart rate of 156 bpm. 2. Normal amniotic fluid index of 12.3 cm. 3. Estimated weight is <3rd percentile by Hadlock criteria when 04/21/2025 is used as the estimated date of delivery (LILI). Please correlate with clinica l information or earlier ultrasounds for most accurate LILI.
--- OUTSIDE RECORDS SUMMARY | 2025-03-22 15:32 | XMS_ITS | Clinical Summary ---
Author Organization [facility] Address [address] [address] Care Team Providers Care Bellmaker Name Role Phone Unavailable Primary Care Provider Unavailabl e Source Comments [facility],non-owned Affiliates and Associated Physician Practices is amultiple site organization consisting of ambulatory clinics and hospital sitesin [place], [place], [place] and [place]. This disclosure is being madepursuant to the Care Everywhere program and may not contain all information available regarding this patient. Last updated 18.[facility] Allergies No known active allergies Medications * [...] 12/23/2021 Assessment & Plan (12/26/2021 4:15 PM TOPOGRAPHIC COMPUTATOR): Assessment: Charles is a 16 year old [...] afternoon Assessment & Plan (12/25/2021 1:34 PM TOPOGRAPHIC COMPUTATOR): Assessment: Charles is a 16 year old [...] facility Assessment & Plan (12/24/2021 3:46 PM TOPOGRAPHIC COMPUTATOR): Assessment: Charles is a 16 year old [...] consultation Assessment & Plan (12/23/2021 10:40 PM TOPOGRAPHIC COMPUTATOR): Assessment: Charles is a 16 year old [...] 12/23/2021 Assessment & Plan (12/26/2021 4:15 PM TOPOGRAPHIC COMPUTATOR): Assessment: Karnas CBC with a low hemoglobin (8.8) and [...] persists Assessment & Plan (12/25/2021 1:35 PM TOPOGRAPHIC COMPUTATOR): Assessment: Karans CBC with a low hemoglobin [...] persists Assessment & Plan (12/24/2021 1:33 PM TOPOGRAPHIC COMPUTATOR): Assessment: Julio César CBC with a low hemoglobin (8.8) and low MCV is concerning for iron deficiency anemia. This is likely due to inadequate dietary intake of iron. Plan: - start MVI with iron - nutrition consultation Assessment & Plan (12/23/2021 10:41 PM TOPOGRAPHIC COMPUTATOR): Assessment: Julio César CBC with a low hemoglobin (8.8) and low MCV is concerning for iron deficiency anemia. This is likely due to inadequate dietary intake of iron. Plan: - consider iron supplements when medically cleared - consider nutrition consultation Mild intermittent asthma without complication [place]-Schlatter's disease, right 08/17/2018 BMI (body mass index), pediatric, 95-99% for age 0403/04/2015 Estimated Date of Delivery Comme nts Yes 04/21/2025 Based on last me nstrual period of 07/15/2024 Resolved Problems Problem Noted Date Diagnosed Date Resolved Date Suicidal ideation 12/29/2021 12/31/2021 UTI (urinary tract infection) 12/23/2021 01/06/2022 Assessment & Plan (12/26/2021 4:17 PM TOPOGRAPHIC COMPUTATOR): Assessment: Karans initial UA at the outside hospital was concerning for a UTI with nitrites and some WBC with repeat UA at [facility] negative for nitrites but with evidence of pyuria with WBC and urine culture grew >100k cfus e coli. Plan to treat with course of nitrofurantoin. Plan: - Prescription for course of nitrofurantoin provided to continue at discharge Assessment & Plan (12/25/2021 1:35 PM TOPOGRAPHIC COMPUTATOR): Assessment: Karans initial UA at the outside hospital was concerning for a UTI with nitrites and some WBC, however, there were many squamous epithelial cells present which makes the specimen less reliable. She is not currently complaining of symptoms of a UTI. Repeat UA here was negative for LE and nitrites. Plan: - continue to monitor - Urine culture at [facility] pending Assessment & Plan (12/24/2021 1:33 PM TOPOGRAPHIC COMPUTATOR): Assessment: Charles's initial UA at the outside hospital was concerning for a UTI, however, there were many squamous epithelial cells present which makes the specimen less reliable. She is not currently complaining of symptoms of a UTI. Repeat UA here was negative for LE and nitrites. Plan: - continue to monitor Assessment & Plan (12/23/2021 10:42 PM TOPOGRAPHIC COMPUTATOR): Assessment: Charles's initial UA at the outside [...] - 02/12/2025 11:59 PM CDT Hospital Encounter [facility] [address] [place] [id number] Savage Contreras MD Discharge Disposition: Home or Self Care 01/15/2025 9:45 AM TOPOGRAPHIC COMPUTATOR - 01/15/2025 11:59 PM TOPOGRAPHIC COMPUTATOR Hospital Encounter [facility] [address] [place] [id number] Savage Contreras MD Discharge Disposition: Home or [...] on file Legal Sex Female 5:44 AM TOPOGRAPHIC COMPUTATOR Gender Identity Not on file Sexual Orientation Not on file Last Filed Vital Signs Vital Sign Reading Time Taken Comments Blood Pressure 122/55 11/13/2024 10:36 AM TOPOGRAPHIC COMPUTATOR Pulse 71 11/13/2024 10:36 AM TOPOGRAPHIC COMPUTATOR Temperature 36.3 C (97.4 F) 03/05/2022 2:12 PM CDT Respiratory Rate 16 12/31/2021 1:57 PM TOPOGRAPHIC COMPUTATOR Oxygen Saturation 100% 12/31/2021 1:57 PM TOPOGRAPHIC COMPUTATOR Inhaled Oxygen Concentration - - Weight 113.4 kg (250 lb) 11/13/2024 10:36 AM TOPOGRAPHIC COMPUTATOR Height 168.9 cm (5' 6.5 ) 11/13/2024 10:36 AM CS T Body Mass Index 39.75 11/13/2024 10:36 AM TOPOGRAPHIC COMPUTATOR Plan of Treatment Health Maintenance Due Date [...] Where can I go for more information? [employer] ( ) www.aap.org HealthyChildren.org www.healthychildren.org U.S. Department of Health and Human Services www.hhs.gov Website and free downloadable frankie for [place]: http://www.Friend Trusted/ Use safety retraint in car Lifestyle On [...] anatomy Encounter for ultrasound to assess growth [place]-Schlatter's disease, right SONOGRAM - COMPLETE Routine 01/15/2025 9:36 AM TOPOGRAPHIC COMPUTATOR Liver and biliary tract disorders in , second trimester (HCC): hepeattis B surface antigen positive Anemia complicating in second trimester High risk teen , antepartum BMI 39.0-39.9,adult 25 weeks gestation of CHLAMYDIA + GC AMPLIFIED PROBE Routine 01/27/2022 4:24 PM TOPOGRAPHIC COMPUTATOR Hx of chlamydia infection HIV-1 HIV-2 ANTIBODY + HIV P24 AG PANEL AM Draw 12/28/2021 6:25 AM TOPOGRAPHIC COMPUTATOR from Last 3 Months or Most Recently [...] 3 lb 3 oz EFW by Hadlock ([id number]) appropriate Growth Overview Exam date [place] BPD [...] following structures appear normal: Heart / Thorax 2-czatkc-gbburer view. Abdomen Stomach. Kidneys. Bladder. The following [...] weeks for growth assessment Coding ====== Procedures 13899: US Preg Uterus [facility] P[facility] Anatomical Region Laterality Modality Other 02/12/2025 9:41 AM CDT Edouard Abraham MD [facility] ORDERABLES Edited Result - Final * CHLAMYDIA + GC AMPLIFIED PROBE (01/27/2022 4:24 PM TOPOGRAPHIC COMPUTATOR) Chlamydia KADIE Urine Negative Negative [facility] INSURANCE BILL GC KADIE Urine Negative Negative [facility] INSURANCE BILL Microbiology URINE / Unknown 01/27/2022 4 :24 PM TOPOGRAPHIC COMPUTATOR 01/28/2022 Narrative Resulting Agency Comment Lab Testing performed at: [address] [id number] Juliet Agustin MD LAB - MICROBIOLOGY ORDERABLES Final Result [facility] INSURANCE BILL [address] [place] [address] * HIV-1 HIV-2 ANTIBODY + HIV P24 AG PANEL (12/28/2021 6:25 AM TOPOGRAPHIC COMPUTATOR) HIV1/2 Ab + P24 Ag Non Reactive Non Reactive 12/28/2021 6:30 PM TOPOGRAPHIC COMPUTATOR [facility] Blood BLOOD SPECIMEN / Unknown Lab Venipuncture / Unknown 12/28/2021 6:25 AM TOPOGRAPHIC COMPUTATOR 12/28/2021 7:30 AM TOPOGRAPHIC COMPUTATOR Narrative [facility] - 12/28/2021 6:30 PM TOPOGRAPHIC COMPUTATOR No Laboratory evidence of HIV infection. Faith Sommer MD LAB - CHEMISTRY ORDERABLES Final Result [facility] [address] [place] [address] from Last 3 Months or Most Recently Relevant to Health Maintenance Insurance [facility] * Guarantor: CHARLES AN Account Type Relation to Patient Date of Phone Billing Address Personal/Family [address] [place] [address] Advance Directives * Full Code (Latest Code Status on File) Date Activated Date Inactivated Comments 12/26/2021 4:57 PM 12/31/2021 5:12 PM * Full Code Date Activated Date Inactivated Comments 12/23/2021 8:34 PM 12/26/2021 4:45 PM
== END 2025-03-22 15:02 | disposition home or self-care (01) ==
PROVIDERS: PCP Student in an Organized Health Care Education/Training Program; Visit Provider Student in an Organized Health Care Education/Training Program
DX: Z34.83 Encounter for supervision of other normal pregnancy, third trimester (principal)
CPT/HCPCS: 76816

== ENCOUNTER 2025-03-26 11:30 | Outpatient (RCR) | payer OTHER, SELFPAY ==
[2025-03-26 12:27] VITALS: BP 130/69; PULSE 108
== END 2025-04-16 08:25 | disposition home or self-care (01) ==
LOC: ANHOBOP 11:30
PROVIDERS: PCP Student in an Organized Health Care Education/Training Program; Visit Provider Student in an Organized Health Care Education/Training Program
DX: O36.5930 Maternal care for other known or suspected poor fetal growth, third trimester, not applicable or unspecified (principal); Z3A.36 36 weeks gestation of pregnancy
CPT/HCPCS: 59025

== ENCOUNTER 2025-04-01 20:25 | Inpatient (IN) | payer OTHER, SELFPAY ==
[2025-04-01] VITALS (9 sets, daily range): BP systolic 88–139; BP diastolic 52–81; PULSE 95–112; TEMP 36.6; BMI 43.9
--- OUTSIDE RECORDS SUMMARY | 2025-04-01 20:37 | XMS_ITS | Clinical Summary ---
Author Organization [facility] Address [address] [place] [address] Care Team Providers Care Watch And Clock Repair Clerk Name Role Phone Unavailable Primary Care Provider Unavailabl e Source Comments [facility],non-owned Affiliates and Associated Physician Practices is amultiple site organization consisting of ambulatory clinics and hospital sitesin [place], [place] and [place]. This disclosure is being madepursuant to the Care Everywhere program and may not contain all information available regarding this patient. Last updated 18.[facility] Allergies No known active allergies Medications * [...] 12/23/2021 Assessment & Plan (12/26/2021 4:15 PM HOSPITAL PHARMACIST): Assessment: Charles is a 16 year old [...] afternoon Assessment & Plan (12/25/2021 1:34 PM HOSPITAL PHARMACIST): Assessment: Charles is a 16 year old [...] facility Assessment & Plan (12/24/2021 3:46 PM HOSPITAL PHARMACIST): Assessment: Charles is a 16 year old [...] consultation Assessment & Plan (12/23/2021 10:40 PM HOSPITAL PHARMACIST): Assessment: Charles is a 16 year old [...] 12/23/2021 Assessment & Plan (12/26/2021 4:15 PM HOSPITAL PHARMACIST): Assessment: Karans CBC with a low hemoglobin [...] persists Assessment & Plan (12/25/2021 1:35 PM HOSPITAL PHARMACIST): Assessment: Karans CBC with a low hemoglobin [...] persists Assessment & Plan (12/24/2021 1:33 PM HOSPITAL PHARMACIST): Assessment: Julio César CBC with a low hemoglobin (8.8) and low MCV is concerning for iron deficiency anemia. This is likely due to inadequate dietary intake of iron. Plan: - start MVI with iron - nutrition consultation Assessment & Plan (12/23/2021 10:41 PM HOSPITAL PHARMACIST): Assessment: Julio César CBC with a low [...] 01/06/2022 Assessment & Plan (12/26/2021 4:17 PM HOSPITAL PHARMACIST): Assessment: Karans initial UA at the outside hospital was concerning for a UTI with nitrites and some WBC with repeat UA at [facility] negative for nitrites but with evidence of pyuria with WBC and urine culture grew >100k cfus e coli. Plan to treat with course of nitrofurantoin. Plan: - Prescription for course of nitrofurantoin provided to continue at discharge Assessment & Plan (12/25/2021 1:35 PM HOSPITAL PHARMACIST): Assessment: Karans initial UA at the outside hospital was concerning for a UTI with nitrites and some WBC, however, there were many squamous epithelial cells present which makes the specimen less reliable. She is not currently complaining of symptoms of a UTI. Repeat UA here was negative for LE and nitrites. Plan: - continue to monitor - Urine culture at [facility] pending Assessment & Plan (12/24/2021 1:33 PM HOSPITAL PHARMACIST): Assessment: Charles's initial UA at the outside hospital was concerning for a UTI, however, there were many squamous epithelial cells present which makes the specimen less reliable. She is not currently complaining of symptoms of a UTI. Repeat UA here was negative for LE and nitrites. Plan: - continue to monitor Assessment & Plan (12/23/2021 10:42 PM HOSPITAL PHARMACIST): Assessment: Charles's initial UA at the outside [...] - 02/12/2025 11:59 PM CDT Hospital Encounter [facility] [address] [place] [phone] Savage Contreras MD Discharge Disposition: Home or Self Care 01/15/2025 9:45 AM HOSPITAL PHARMACIST - 01/15/2025 11:59 PM HOSPITAL PHARMACIST Hospital Encounter [facility] [address] [place] [id number] Savage Contreras MD Discharge Disposition: Home or [...] on file Legal Sex Female 5:44 AM HOSPITAL PHARMACIST Gender Identity Not on file Sexual Orientation Not on file Last Filed Vital Signs Vital Sign Reading Time Taken Comments Blood Pressure 122/55 11/13/2024 10:36 AM HOSPITAL PHARMACIST Pulse 71 11/13/2024 10:36 AM HOSPITAL PHARMACIST Temperature 36.3 C (97.4 F) 03/05/2022 2:12 PM CDT Respiratory Rate 16 12/31/2021 1:57 PM HOSPITAL PHARMACIST Oxygen Saturation 100% 12/31/2021 1:57 PM HOSPITAL PHARMACIST Inhaled Oxygen Concentration - - Weight 113.4 kg (250 lb) 11/13/2024 10:36 AM HOSPITAL PHARMACIST Height 168.9 cm (5' 6.5 ) 11/13/2024 10:36 AM CS T Body Mass Index 39.75 11/13/2024 10:36 AM HOSPITAL PHARMACIST Plan of Treatment Upcoming Encounters Date Type Department Care Team (Late st Contact Info) Description 04/02/2025 9:00 AM CDT Hospital Encounter [facility] [address] [place], [place] [id number] Savage Contreras MD [address] [facility] [address] [place] [address] Health Maintenance Due Date Last Done [...] Where can I go for more information? [employer] ( ) www.aap.org HealthyChildren.org www.healthychildren.org U.S. Department of Health and Human Services www.hhs.gov Website and free downloadable frankie for smartphones: http://www.mobilePeople/ Use safety retraint in car Lifestyle On [...] anatomy Encounter for ultrasound to assess growth [place]-Schlatter's disease, right SONOGRAM - COMPLETE Routine 01/15/2025 9:36 AM HOSPITAL PHARMACIST Liver and biliary tract disorders in , second trimester (HCC): hepeattis B surface antigen positive Anemia complicating in second trimester High risk teen , antepartum BMI 39.0-39.9,adult 25 weeks gestation of CHLAMYDIA + GC AMPLIFIED PROBE Routine 01/27/2022 4:24 PM HOSPITAL PHARMACIST Hx of chlamydia infection HIV-1 HIV-2 ANTIBODY + HIV P24 AG PANEL AM Draw 12/28/2021 6:25 AM HOSPITAL PHARMACIST from Last 3 Months or Most Recently [...] 3 lb 3 oz EFW by Hadlock ([id number]) appropriate Growth Overview Exam date [place] BPD [...] following structures appear normal: Heart / Thorax 4-ggilfc-wffycfj view. Abdomen Stomach. Kidneys. Bladder. The following [...] weeks for growth assessment Coding ====== Procedures 61035: US Preg Uterus Follow Up [facility] PACS Anatomical Region Laterality Modality Other 02/12/2025 9:41 AM CDT Edouard Abraham MD [facility] ORDERABLES Edited Result - Final * CHLAMYDIA + GC AMPLIFIED PROBE (01/27/2022 4:24 PM HOSPITAL PHARMACIST) Chlamydia KADIE Urine Negative Negative [facility] INSURANCE BILL GC KADIE Urine Negative Negative [facility] INSURANCE BILL Microbiology URINE / Unknown 01/27/2022 4 :24 PM HOSPITAL PHARMACIST 01/28/2022 Narrative Resulting Agency Comment Lab Testing performed at: [address] [id number] Juliet Agustin MD LAB - MICROBIOLOGY ORDERABLES Final Result [facility] INSURANCE BILL [address] [place] [address] * HIV-1 HIV-2 ANTIBODY + HIV P24 AG PANEL (12/28/2021 6:25 AM HOSPITAL PHARMACIST) HIV1/2 Ab + P24 Ag Non Reactive Non Reactive 12/28/2021 6:30 PM HOSPITAL PHARMACIST [facility] Blood BLOOD SPECIMEN / Unknown Lab Venipuncture / Unknown 12/28/2021 6:25 AM HOSPITAL PHARMACIST 12/28/2021 7:30 AM HOSPITAL PHARMACIST Narrative [facility] - 12/28/2021 6:30 PM HOSPITAL PHARMACIST No Laboratory evidence of HIV infection. Faith Sommer MD LAB - CHEMISTRY ORDERABLES Final Result [facility] [address] [place], [place] [id number] from Last 3 Months or Most Recently Relevant to Health Maintenance Insurance [facility] * Guarantor: CHARLES AN Account Type Relation to Patient Date of Phone Billing Address Personal/Family [address] [place] [address] Advance Directives * Full Code (Latest Code Status on File) Date Activated Date Inactivated Comments 12/26/2021 4:57 PM 12/31/2021 5:12 PM * Full Code Date Activated Date Inactivated Comments 12/23/2021 8:34 PM 12/26/2021 4:45 PM
--- NOTE | 2025-04-01 21:13 | LDADM ---
This patient, Jess An, was admitted to Labor/Delivery/Recovery 109 on 04/01/25 at 20:25. Plans for labor, pain management and were discussed with patient. Patient/family oriented to hospital policies and general routines including ID bracelet, bed and alarms, visiting hours, pain management, procedures, bathroom and other care routines, personal items, smoking policy, room service/diet and guest tray routines, infant security routines, and visiting hours. Patient/Family are encouraged to report perceived risks to care and to ask questions if they do not understand what they are told or what they should do. See OBIX for further documentation.
[2025-04-01] MEDS: DINOPROSTONE 10 MG VAG INSERT VAGINAL (21:30)
[2025-04-01 21:39] LABS: Basophils Percent Auto 0.2 % (0.2-1.2); Eosinophils Absolute Auto 0.2 K/mm3 (0-0.3); Eosinophils Percent Auto 1.2 % (0-4.4); Hematocrit 35.6 % (37.0-47.0); Hemoglobin 10.7 g/dL (12.0-15.0); Immature Granulocyte Percent A 0.8 % (0-0.5); Immature Platelet Fraction Pct 6.6 % (0.9-11.2); Lymphocytes Percent Auto 11.7 % (18.3-44.2); Mean Corpuscular HGB Conc 30.1 g/dl (32-36); Mean Corpuscular Hemoglobin 22.4 pg (26-34); Mean Corpuscular Volume 74.5 fl (80-100); Mean Platelet Volume 10.9 fl (7.4-10.4); Monocytes Absolute Auto 0.8 K/mm3 (0.1-0.6); Monocytes Percent Auto 6.4 % (2.6-8.5); Neutrophils Absolute Auto 10.2 K/mm3 (1.3-6.7); Neutrophils Percent Auto 79.7 % (45.5-73.1); Platelet Count Result 238 k/mm3 (150-375); Red Blood Count 4.78 M/mm3 (4.2-5.4); Red Cell Distribution Width 16.4 % (11.5-14.5); White Blood Count 12.8 K/mm3 (4.5-10.0)
[2025-04-01 22:01] LABS: Microcytosis 1+ (NORMAL); Platelet Estimate Adequate (Adequate); Schistocytes None Seen
[2025-04-01] MEDS: ACETAMINOPHEN 500 MG TABLET 1000 MG PO (22:15)
[2025-04-01 22:16] LABS: Syphilis IgG/IgM Antibody Negative (Negative)
[2025-04-01 22:29] LABS: HIV 1/2 Ab P24 Ag Result Negative (Negative)
[2025-04-02] VITALS (94 sets, daily range): BP systolic 67–135; BP diastolic 30–103; PULSE 87–122; TEMP 36.3–36.7; O2SAT 92–100
[2025-04-02] MEDS: miSOPROStol 25 MCG TABLET VAGINAL (10:28)
[2025-04-02] MEDS: LACTATED RINGERS 1,000 ML 125 ML IV CONT ×2 (14:29→22:44)
[2025-04-02] MEDS: OXYTOCIN 30 UNITS/NS 500 ML 30 UNITS/500 ML BAG IV CONT (14:30)
--- NOTE | 2025-04-02 16:51 | WPDANESEPP ---
Anes - Eval Pre Procedure Procedure: Labor epidural Date/Time: 04/02/25 16:51 Surgeon: penny Preop Diagnosis: pain during labor Pre Op Diagnosis: IOL Patient Data Age: 20 Gender: F Height: 1.69 m Weight: 125.45 kg Last Vital Signs Temp 36.6 C 04/02/25 15:54 Pulse 109 H 04/02/25 15:31 BP 79/48 L 04/02/25 15:31 O2 Del Method Room Air 04/01/25 21:11 Allergies Allergy/AdvReac Type Severity Reaction Status Date / Time No Known Allergies Allergy Verified 03/26/25 09:23 Home Medications Medication Instructions Recorded Confirmed Type aspirin 81 mg tablet,delayed 81 mg PO DAILY 11/24/24 03/26/25 History release (Adult Low Dose Aspirin) triamcinolone acetonide 0.025 % 1 applic topical BID #60 mL 02/28/25 03/26/25 Rx lotion ferrous sulfate 324 mg (65 mg 324 mg PO DAILY #30 tabs 03/15/25 03/26/25 Rx iron) tablet,delayed release vitamin with calcium See Rx Instructions .Route 03/15/25 03/26/25 Rx no.72-iron 27 mg-folic acid 1 mg .COMPLEX #30 tabs tablet (M- Plus) Laboratory Tests 04/01/25 21:07 WBC 12.8 H K/mm3 (4.5-10.0) RBC 4.78 M/mm3 (4.2-5.4) Hgb 10.7 L g/dL (12.0-15.0) Hct 35.6 L % (37.0-47.0) MCV 74.5 L fl (80-100) MCH 22.4 L pg (26-34) MCHC 30.1 L g/dl (32-36) RDW 16.4 H % (11.5-14.5) Plt Count 238 k/mm3 (150-375) MPV 10.9 H fl (7.4-10.4) Immature Gran % (Auto) 0.8 H % (0-0.5) Neut % (Auto) 79.7 H % (45.5-73.1) Lymph % (Auto) 11.7 L % (18.3-44.2) [facility] % (Auto) 6.4 % (2.6-8.5) Eos % (Auto) 1.2 % (0-4.4) Baso % (Auto) 0.2 % (0.2-1.2) Lymph # (Auto) 1.50 K/mm3 (0.9-3.2) [facility] # (Auto) 0.8 H K/mm3 (0.1-0.6) Eos # (Auto) 0.2 K/mm3 (0-0.3) Baso # (Auto) 0.0 K/mm3 (0.0-0.1) Abs Immat Gran (auto) 0.10 H K/mm3 (0.00-0.031) Absolute Neuts (auto) 10.2 H K/mm3 (1.3-6.7) Absolute Nucleated RBC 0.000 K/mm3 (0.0-0.012) Band Neutrophils % Not Reportable Nucleated RBC % 0.0 % (0.0-0.2) Platelet Estimate Adequate (Adequate) % Immature Plt Fraction 6.6 % (0.9-11.2) Microcytosis 1+ (NORMAL) Schistocytes None seen Syphilis IgG/IgM Ab Negative (Negative) HIV 1&2 Ab/P24 Ag 4thGn Negative (Negative) Blood Type O Positive Antibody Screen Negative Patient hx anesthesia problems: none Family hx anesthesia problems: none Results Review: All pre-operative results and documents have been reviewed as part of the pre-operative evaluation. [facility] Past Medical History Medical History Healthy female adult Surgical History Surgical History No history of previous surgery Family History Family History Other Patient denies significant medical history Social History Social History Smoking status: Current every day smoker Tobacco type: e-cigarettes/vaping Second hand tobacco smoke exposure: No Alcohol intake: never Substance use: never Substance use type: does not use Do You Feel Safe in your Home?: Yes Lack of Transportation: No Lack of Food: Never True Current Housing: I Have Housing Concerned About Future Housing: No Difficulty Paying Gas/Electric Bills: No Difficulty Paying for Meds: No Currently Unemployed: No Education: High School Diploma/GED Difficulty w/ Childcare or Family Care: No Living arrangements: with family Occupation/Education: occupation Gender identity (if verbalized by the patient): Female Sexual Orientation (if Verbalized by the Patient): Straight or Heterosexual Spiritual care concerns: No Exam Day of Procedure 04/02/25 16:51
[2025-04-03] VITALS (160 sets, daily range): BP systolic 69–131; BP diastolic 33–100; PULSE 61–143; RESP 15–18; TEMP 36.1–36.7; O2SAT 93–100
[2025-04-03] MEDS: CALCIUM CARBONATE (TUMS) 500 MG (200 MG ELEMENTAL) PO (06:42)
[2025-04-03] MEDS: miSOPROStol 25 MCG TABLET VAGINAL (07:49)
--- NOTE | 2025-04-03 17:52 | PM.IMHP ---
H&P: HPI History of Present Illness Date/Time: 04/03/25 17:52 Chief Complaint: Intrauterine at term IUGR Hepatitis-B Narrative: 20-year-old who presents for induction of labor at 37 weeks for for IUGR. Patient had an ultrasound on 03/23/2025 that showed EFW less than the 3rd percentile. Medical history is also complicated by hepatitis-B. Viral load has been undetectable throughout . Will plan for hepatitis B vaccine and immunoglobulin for after . [facility] Past Medical History Medical History Healthy female adult Surgical History Surgical History No history of previous surgery Family History Family History Other Patient denies significant medical history Social History Social History Smoking status: Current every day smoker Tobacco type: e-cigarettes/vaping Second hand tobacco smoke exposure: No Alcohol intake: never Substance use: never Substance use type: does not use Do You Feel Safe in your Home?: Yes Lack of Transportation: No Lack of Food: Never True Current Housing: I Have Housing Concerned About Future Housing: No Difficulty Paying Gas/Electric Bills: No Difficulty Paying for Meds: No Currently Unemployed: No Education: High School Diploma/GED Difficulty w/ Childcare or Family Care: No Living arrangements: with family Occupation/Education: occupation Gender identity (if verbalized by the patient): Female Sexual Orientation (if Verbalized by the Patient): Straight or Heterosexual Spiritual care concerns: No Meds Home Medications and Allergies Home Medications Medication Instructions Recorded Confirmed Type aspirin 81 mg tablet,delayed 81 mg PO DAILY 11/24/24 03/26/25 History release (Adult Low Dose Aspirin) triamcinolone acetonide 0.025 % 1 applic topical BID #60 mL 02/28/25 03/26/25 Rx lotion ferrous sulfate 324 mg (65 mg 324 mg PO DAILY #30 tabs 03/15/25 03/26/25 Rx iron) tablet,delayed release vitamin with calcium See Rx Instructions .Route 03/15/25 03/26/25 Rx no.72-iron 27 mg-folic acid 1 mg .COMPLEX #30 tabs tablet (M-Rupinder Plus) Allergies Allergy/AdvReac Type Severity Reaction Status Date / Time No Known Allergies Allergy Verified 03/26/25 09:23 Vital Signs Vital Signs - 24 hr 04/02/25 18:48 04/02/25 19:00 04/02/25 19:10 Temperature 97.3 F L Pulse Rate 98 93 Blood Pressure 124/59 L 128/103 H Pulse Oximetry 98 100 04/02/25 19:15 04/02/25 19:20 04/02/25 19:24 Temperature Pulse Rate Blood Pressure Pulse Oximetry 99 99 99 04/02/25 19:29 04/02/25 19:31 04/02/25 19:33 Temperature Pulse Rate 92 Blood Pressure 113/41 L Pulse Oximetry 100 95 04/02/25 19:38 04/02/25 19:43 04/02/25 19:48 Temperature Pulse Rate Blood Pressure Pulse Oximetry 98 98 98 04/02/25 19:53 04/02/25 19:58 04/02/25 20:00 Temperature Pulse Rate 92 Blood Pressure 109/30 L Pulse Oximetry 98 98 04/02/25 20:02 04/02/25 20:07 04/02/25 20:24 Temperature Pulse Rate Blood Pressure Pulse Oximetry 98 100 97 04/02/25 20:29 04/02/25 20:30 04/02/25 20:38 Temperature Pulse Rate 106 H Blood Pressure 127/57 L Pulse Oximetry 98 99 04/02/25 20:42 04/02/25 20:45 04/02/25 20:56 Temperature Pulse Rate Blood Pressure Pulse Oximetry 98 100 100 04/02/25 20:56 04/02/25 20:59 04/02/25 21:00 Temperature 97.9 F Pulse Rate 101 H Blood Pressure 119/45 L Pulse Oximetry 100 04/02/25 21:01 04/02/25 21:06 04/02/25 21:10 Temperature Pulse Rate Blood Pressure Pulse Oximetry 99 100 98 04/02/25 21:13 04/02/25 21:18 04/02/25 21:22 Temperature Pulse Rate Blood Pressure Pulse Oximetry 97 99 98 04/02/25 21:23 04/02/25 21:28 04/02/25 21:33 Temperature Pulse Rate Blood Pressure Pulse Oximetry 100 99 100 04/02/25 21:38 04/02/25 21:43 04/02/25 21:45 Temperature Pulse Rate Blood Pressure Pulse Oximetry 99 100 98 04/02/25 21:50 04/02/25 21:55 04/02/25 22:00 Temperature Pulse Rate Blood Pressure Pulse Oximetry 98 100 98 04/02/25 22:05 04/02/25 22:11 04/02/25 22:16 Temperature Pulse Rate Blood Pressure Pulse Oximetry 98 99 98 04/02/25 22:18 04/02/25 22:21 04/02/25 22:25 Temperature Pulse Rate 107 H Blood Pressure 128/68 Pulse Oximetry 100 98 04/02/25 22:31 04/02/25 22:36 04/02/25 22:41 Temperature Pulse Rate 101 H Blood Pressure 93/76 L Pulse Oximetry 100 98 100 04/02/25 22:42 04/02/25 22:45 04/02/25 22:50 Temperature Pulse Rate Blood Pressure Pulse Oximetry 99 99 98 04/02/25 23:04 04/02/25 23:09 04/02/25 23:10 Temperature Pulse Rate Blood Pressure Pulse Oximetry 95 96 97 04/02/25 23:15 04/02/25 23:17 04/02/25 23:20 Temperature 98 F Pulse Rate Blood Pressure Pulse Oximetry 99 100 04/02/25 23:22 04/02/25 23:27 04/02/25 23:29 Temperature Pulse Rate Blood Pressure Pulse Oximetry 96 100 92 04/02/25 23:30 04/02/25 23:32 04/02/25 23:33 Temperature Pulse Rate 93 Blood Pressure 115/65 Pulse Oximetry 97 100 04/02/25 23:34 04/02/25 23:37 04/02/25 23:42 Temperature Pulse Rate Blood Pressure Pulse Oximetry 97 100 94 04/02/25 23:46 04/02/25 23:47 04/02/25 23:52 Temperature Pulse Rate 92 Blood Pressure 112/47 L Pulse Oximetry 97 100 04/02/25 23:57 04/03/25 00:01 04/03/25 00:02 Temperature Pulse Rate 86 Blood Pressure 108/58 L Pulse Oximetry 95 95 04/03/25 00:07 04/03/25 00:12 04/03/25 00:16 Temperature Pulse Rate 90 Blood Pressure 98/51 L Pulse Oximetry 95 94 04/03/25 00:17 04/03/25 00:22 04/03/25 00:27 Temperature Pulse Rate Blood Pressure Pulse Oximetry 94 95 94 04/03/25 00:30 04/03/25 00:32 04/03/25 00:37 Temperature Pulse Rate 93 Blood Pressure 98/47 L Pulse Oximetry 94 97 04/03/25 00:41 04/03/25 00:43 04/03/25 00:45 Temperature 98.1 F Pulse Rate Blood Pressure Pulse Oximetry 97 98 04/03/25 00:48 04/03/25 00:53 04/03/25 00:58 Temperature Pulse Rate Blood Pressure Pulse Oximetry 96 97 98 04/03/25 01:01 04/03/25 01:03 04/03/25 01:08 Temperature Pulse Rate 97 Blood Pressure 112/40 L Pulse Oximetry 98 98 04/03/25 01:13 04/03/25 01:18 04/03/25 01:23 Temperature Pulse Rate Blood Pressure Pulse Oximetry 98 97 97 04/03/25 01:28 04/03/25 01:30 04/03/25 01:33 Temperature Pulse Rate 91 Blood Pressure 118/45 L Pulse Oximetry 98 96 04/03/25 01:38 04/03/25 01:43 04/03/25 01:48 Temperature Pulse Rate Blood Pressure Pulse Oximetry 96 95 94 04/03/25 01:53 04/03/25 01:58 04/03/25 02:01 Temperature Pulse Rate 88 Blood Pressure 109/37 L Pulse Oximetry 95 97 04/03/25 02:03 04/03/25 02:07 04/03/25 02:12 Temperature Pulse Rate Blood Pressure Pulse Oximetry 96 97 98 04/03/25 02:17 04/03/25 02:22 04/03/25 02:27 Temperature Pulse Rate Blood Pressure Pulse Oximetry 97 98 99 04/03/25 02:30 04/03/25 02:32 04/03/25 02:37 Temperature Pulse Rate 88 Blood Pressure 110/52 L Pulse Oximetry 99 99 04/03/25 02:42 04/03/25 02:45 04/03/25 02:47 Temperature Pulse Rate Blood Pressure Pulse Oximetry 98 96 98 04/03/25 02:52 04/03/25 02:57 04/03/25 03:01 Temperature 97.1 F L Pulse Rate 96 Blood Pressure 103/61 Pulse Oximetry 99 99 04/03/25 03:02 04/03/25 03:07 04/03/25 03:11 Temperature Pulse Rate Blood Pressure Pulse Oximetry 98 99 99 04/03/25 03:16 04/03/25 03:26 04/03/25 03:28 Temperature Pulse Rate Blood Pressure Pulse Oximetry 100 98 99 04/03/25 03:30 04/03/25 03:33 04/03/25 03:38 Temperature Pulse Rate 88 Blood Pressure 115/64 Pulse Oximetry 99 98 04/03/25 03:43 04/03/25 03:48 04/03/25 03:51 Temperature Pulse Rate Blood Pressure Pulse Oximetry 98 99 99 04/03/25 03:56 04/03/25 04:00 04/03/25 04:01 Temperature Pulse Rate 88 Blood Pressure 111/47 L Pulse Oximetry 99 95 04/03/25 04:06 04/03/25 04:11 04/03/25 04:16 Temperature Pulse Rate Blood Pressure Pulse Oximetry 99 98 98 04/03/25 04:21 04/03/25 04:26 04/03/25 04:31 Temperature Pulse Rate 86 Blood Pressure 104/44 L Pulse Oximetry 99 98 98 04/03/25 04:36 04/03/25 04:41 04/03/25 04:46 Temperature Pulse Rate Blood Pressure Pulse Oximetry 97 98 98 04/03/25 04:51 04/03/25 04:56 04/03/25 05:00 Temperature Pulse Rate Blood Pressure Pulse Oximetry 98 98 100 04/03/25 05:01 04/03/25 05:01 04/03/25 05:01 Temperature Pulse Rate Blood Pressure Pulse Oximetry 99 100 98 04/03/25 05:01 04/03/25 05:01 04/03/25 05:06 Temperature Pulse Rate 99 Blood Pressure 97/54 L Pulse Oximetry 97 04/03/25 05:11 04/03/25 05:16 04/03/25 05:21 Temperature Pulse Rate Blood Pressure Pulse Oximetry 97 99 99 04/03/25 05:26 04/03/25 05:30 04/03/25 05:31 Temperature Pulse Rate 84 Blood Pressure 101/51 L Pulse Oximetry 97 98 04/03/25 05:36 04/03/25 05:41 04/03/25 05:46 Temperature Pulse Rate Blood Pressure Pulse Oximetry 99 99 98 04/03/25 06:00 04/03/25 06:30 04/03/25 07:45 Temperature Pulse Rate 85 82 88 Blood Pressure 121/60 130/62 123/70 Pulse Oximetry 04/03/25 08:00 04/03/25 08:15 04/03/25 08:30 Temperature Pulse Rate 90 93 90 Blood Pressure 122/61 128/72 131/100 H Pulse Oximetry 04/03/25 13:07 04/03/25 13:15 04/03/25 13:30 Temperature 97.9 F Pulse Rate 91 92 Blood Pressure 114/58 L 120/59 L Pulse Oximetry 04/03/25 14:01 04/03/25 14:21 04/03/25 14:41 Temperature Pulse Rate 109 H 101 H 98 Blood Pressure 116/51 L 121/53 L 113/51 L Pulse Oximetry 04/03/25 15:00 04/03/25 15:21 04/03/25 15:41 Temperature Pulse Rate 88 95 95 Blood Pressure 113/42 L 69/53 L 124/51 L Pulse Oximetry 04/03/25 16:21 04/03/25 16:40 Temperature Pulse Rate 98 94 Blood Pressure 82/34 L 104/66 Pulse Oximetry Assessment and Plan Assessment and plan (1) : Code(s): Z34.90 - Encounter for supervision of normal , unspecified, unspecified trimester Status: Acute (2) Hepatitis B antibody positive in blood: Code(s): R76.8 - Other specified abnormal immunological findings in serum Status: Acute (3) Intrauterine growth restriction (IUGR) affecting care of mother, third trimester, single gestation: Code(s): O36.5930 - Maternal care for other known or suspected poor growth, third trimester, not applicable or unspecified Status: Acute Assessment and Plan: -tobacco use -trichomonas infection in early -BMI 40 -anemia -couple of small subchronic hematomas measuring 3.1 x 2.0 cm and 2.1 x 0.7 cm (10/18) -Hepatitis B- repeat viral load at 26-28 wk, initiate antiviral if >200k- Hep B viral load undetectable (02/09) -ultrasound showed EFW less than the 3rd percentile, recommended moving towards delivery Patient presented for induction of labor. She received Cervidil followed by vaginal misoprostol. Patient then had Pitocin augmentation for over 12 hours. Cervical Cohn balloon was attempted to be placed. Cervix remained extremely posterior and high in the pelvis. Pelvis also felt narrow. Patient then had repeat vaginal misoprostol. Cervix remained 1-2 cm, high and posterior. Cervical catheter balloon was then placed via speculum assistance. Pitocin was then administered. Cohn balloon was removed and patient remained 2 cm. Discussed failed induction with patient. Recommended proceeding with primary . Risks, benefits, alternatives reviewed. Patient consents to proceed with primary for failed induction of labor for IUGR (4) Obesity: Code(s): E66.9 - Obesity, unspecified Status: Acute
[2025-04-03] MEDS: ACETAMINOPHEN 500 MG TABLET 1000 MG PO (18:34)
[2025-04-03] MEDS: FAMOTIDINE 20 MG/2 ML VIAL IV PUSH (19:15)
[2025-04-03] MEDS: ONDANSETRON INJ 4 MG/2 ML VIAL IV PUSH (19:15)
[2025-04-03] MEDS: ceFAZolin 3 GM/D5W 100 ML 100 ML IVPB (19:41)
--- NOTE | 2025-04-03 20:39 | W.PM.OBCSD ---
OB - Delivery Note Procedure Delivery date: 04/03/25 Pre-op diagnosis: Failed Induction of Labor and Intrauterine Growth Restriction (IUGR) Post-op Diagnosis: Same Induction method: Per Cervidil Protocol Delivery augmentation: Pitocin and Other (misoprostol and cervical rodas balloon) Delivery monitor: External FHT Prior to decision for section, ACOG/SM labor guidelines were considered and discussed with the patient and staff. Decision made to proceed with the section.: Yes Procedure Performed: Primary Primary branch: low cervical, transverse Surgeon: Edouard Abraham MD Anesthesia type: Spinal Description of Procedure/Findings: The patient was taken to the operating room. A combined spinal epidural anesthesic was administered and found to be adequate at a t-10 level. The patient was placed in a supine position with a slight left lateral tilt. A rodas catheter was placed with return of clear urine. A Bovie grounding pad was placed. Surgical prep was performed and surgical drapes were placed. A surgical time out was performed. A Pfannenstiel skin incision was then made with the scalpel and carried through to the underlying layer of fascia. The fascia was then incised in the midline and the incision was extended laterally with the Batista scissors. The superior aspect of the fascia was then grasped with the Isreal clamps, elevated, and the underlying rectus muscles dissected off bluntly and sharply. Attention was then turned to the inferior aspect of this incision which, in a similar fashion, was grasped, tented up with the Isreal clamps, and the rectus muscles dissected off both bluntly and sharply. The rectus muscles were then in the midline. The peritoneum was identified and entered bluntly. The peritoneal incision was then extended superiorly and inferiorly with good visualization of the bladder. An Wilber O retractor was placed for better visualization. The uterus was inspected for rotation. A low-transverse uterine incision was made sharply with the scalpel and entry was made into the uterine cavity. An amniotomy was made and copious amounts of clear fluid were noted on return. The uterine incision was extended laterally bluntly. The bladder blade was removed and the fetus was delivered atraumatically. The nose and mouth were suctioned with a bulb syringe. The umbilical cord was clamped twice and cut. The infant was handed off to the waiting staff. At the time of the delivery, the had good color, tone and grimace. The infant cried with minimal stimulation. A second segment of umbilical cord was clamped and cut for cord blood gasses. Cord blood was collected for determination of the blood type and for direct Bob. The placenta was delivered spontaneously without difficulty. The placenta appeared grossly normal and complete. The uterus was exteriorized and cleared of all clots and debris. The uterine incision was repaired using 0-monocryl suture in a running fashion. A second layer of 0 Monocryl suture was used in an imbricating fashion to obtain excellent hemostasis and uterine strength. The uterine closure was inspected for hemostasis. The posterior aspect of the uterus and the broad ligaments were inspected and the posterior cul-de-sac cleared of fluid and blood clots. The uterine closure was again inspected and found to be hemostatic. The uterus was returned to the abdominal cavity. The ring retractor was removed from the abdomen. The pericolic gutters were inspected and were cleared of all blood clots and debris. The uterine closure was then re inspected to ensure hemostasis as were all subfascial tissues. The peritoneum was closed using 3-0 vicryl in a running fashion. The fascia was reapproximated with 0-vicryl in a running fashion. The subcutaneous tissue was irrigated and hemostasis achieved with electrocautery. It was reapproximated with 3-0 vicryl in a running fashion. The skin was closed with 4-0 vicryl in a subcuticular fashion. A sterile JUAN vacuum dressing was applied to the wound. The patient tolerated the procedure well. Sponge, lap and needle counts were correct times three. The patient was taken to recovery in stable condition and without anticipated complications. Specimen: Yes (placenta) Estimated Blood Loss: 465 Drains: No Packing: No Complications: No immediate complications Condition: Stable Disposition: Floor [place] Baby Date of : 04/03/25 Gestational Age by Date: 37 Infant gender: Male presentation: vertex Placenta delivery description: Manual Removal Cord Vessel Description: 3 Vessels
[2025-04-03] MEDS: LACTATED RINGERS 1,000 ML 125 ML IV CONT ×2 (20:40→21:30)
[2025-04-03] MEDS: OXYTOCIN 30 UNITS/NS 500 ML 30 UNITS/500 ML BAG 125 UNITS IV CONT (21:36)
[2025-04-04] MEDS: ACETAMINOPHEN 325 MG TABLET 650 MG PO ×3 (00:28→18:56)
[2025-04-04] MEDS: KETOROLAC 15 MG/ML VIAL (*BKC) IV PUSH ×2 (00:30→13:18)
[2025-04-04] MEDS: LIDOCAINE 5% PATCH 1 PATCH TRANSDERM (00:34)
[2025-04-04 03:27] VITALS: PULSE 93; O2SAT 95
[2025-04-04 03:28] VITALS: PULSE 85; PULSE 91; O2SAT 93
[2025-04-04 03:29] VITALS: BP 122/82; PULSE 75; PULSE 93; RESP 18; TEMP 36.5; O2SAT 95
[2025-04-04] MEDS: DEXTROSE 5%/0.45% SOD CHL 1,000 ML 125 ML IV CONT (03:35)
[2025-04-04 05:02] LABS: Basophils Percent Auto 0.1 % (0.2-1.2); Eosinophils Absolute Auto 0.1 K/mm3 (0-0.3); Eosinophils Percent Auto 0.5 % (0-4.4); Hematocrit 32.6 % (37.0-47.0); Hemoglobin 10.1 g/dL (12.0-15.0); Immature Granulocyte Absolute 0.11 K/mm3 (0.00-0.031); Immature Granulocyte Percent A 0.7 % (0-0.5); Lymphocytes Absolute Auto 1.21 K/mm3 (0.9-3.2); Lymphocytes Percent Auto 7.9 % (18.3-44.2); Mean Corpuscular Volume 74.3 fl (80-100); Mean Platelet Volume 11.2 fl (7.4-10.4); Monocytes Absolute Auto 0.9 K/mm3 (0.1-0.6); Monocytes Percent Auto 5.8 % (2.6-8.5); Neutrophils Absolute Auto 13.1 K/mm3 (1.3-6.7); Platelet Count Result 208 k/mm3 (150-375); Red Blood Count 4.39 M/mm3 (4.2-5.4); Red Cell Distribution Width 16.7 % (11.5-14.5); White Blood Count 15.4 K/mm3 (4.5-10.0)
[2025-04-04 05:26] LABS: Band Neutrophils Percent 0 % (0-6); Burr Cells 1+; Ovalocytes 1+; Platelet Estimate Adequate (Adequate); Schistocytes None Seen
--- NOTE | 2025-04-04 06:26 | PC.NURSE ---
Report given to Namrata Murillo RN.
--- NOTE | 2025-04-04 07:15 | PC.NURSE ---
Second dose of Tylenol and Toradol given in L & D but appears to not be charted on post JAN. RN states meds were charted and given at 0645.
[2025-04-04 08:10] VITALS: BP 118/61; PULSE 84; RESP 18; TEMP 37.1; O2SAT 97
--- NOTE | 2025-04-04 10:01 | PM.OBPNVD ---
OB - PN: Subj Subjective Date/time seen: 04/04/25 10:01 Patient comments: no complaints, pain well controlled, tolerating diet and flatus present OB - PN: Obj Data Labs 04/04/25 04:40 Labs: Laboratory Results - last 24 hr 04/04/25 04:40 WBC 15.4 H RBC 4.39 Hgb 10.1 L Hct 32.6 L MCV 74.3 L MCH 23.0 L MCHC 31.0 L RDW 16.7 H Plt Count 208 MPV 11.2 H Immature Gran % (Auto) 0.7 H Neut % (Auto) 85.0 H Lymph % (Auto) 7.9 L Evangeline % (Auto) 5.8 Eos % (Auto) 0.5 Baso % (Auto) 0.1 L Lymph # (Auto) 1.21 Evangeline # (Auto) 0.9 H Eos # (Auto) 0.1 Baso # (Auto) 0.0 Abs Immat Gran (auto) 0.11 H Absolute Neuts (auto) 13.1 H Absolute Nucleated RBC 0.000 Band Neutrophils % 0 Nucleated RBC % 0.0 Platelet Estimate Adequate Ovalocytes 1+ Jeferson Cells 1+ Schistocytes None seen OB - PN A/P Plan day: 1 Plan: routine care Comments: patient doing well H/H , continue iron supplementation afebrile, VSS incision covered with JUAN dressing rodas removed, voiding spontaneously continue routine post op care Time Spent With Patient Time: Total time spent is greater than 50% in coordination of care (as documented) at patient's floor/unit and/or counseling patient: Time with patient: less than 15 minutes Review of Systems Constitutional: Constitutional: Reports no additional constitutional complaints Cardiovascular: Cardiovascular: Reports no additional cardiovascular complaints Respiratory: Respiratory: Reports no additional respiratory complaints Gastrointestinal: Gastrointestinal: Reports no additional gastrointestinal complaints Genitourinary: Genitourinary: Reports no additional female genitourinary complaints Exam Const: General: comfortable and no acute distress Resp: Effort & Inspection: normal respiratory effort Auscultation: clear to auscultation bilaterally Cardio: Rate: regular rate GI: GI Palp: Yes Soft to palpation, Yes Tenderness to palpation present (GI) (around incision ) and No Guarding due to palpation present (GI) Auscultation: normal bowel sounds Other: incision C/D/I, covered with Dermabond Psych: Appearance: grossly normal Mental Status: mental status grossly normal Affect: normal affect
--- NOTE | 2025-04-04 10:03 | WPDANLDNPN2 ---
Anes-Prog Note L&D-Neuraxial Date/Time: 04/04/25 10:03 Patient feedback: Patient satisfied with post-operative pain management.
--- NOTE | 2025-04-04 10:03 | WPDANLDPN2 ---
Anes-Prog Note L&D Date/Time: 04/04/25 10:03 Neuro status: Neuro function grossly intact. Cardiovascular status: normal Respiratory status: normal Airway patency: baseline Mental status: baseline Post-Op hydration status: normal Vital Signs: Last Vital Signs Temp 37.1 C 04/04/25 08:10 Pulse 84 04/04/25 08:10 Resp 18 04/04/25 08:10 BP 118/61 04/04/25 08:10 Pulse Ox 97 04/04/25 08:10 O2 Del Method Room Air 04/03/25 22:45 Pain score (VAS): 0 I/O: Intake & Output 04/03/25 04/04/25 04/04/25 23:59 07:59 15:59 Intake Total 300 500 Output Total 1115 450 Balance -815 50 Post-procedural complaints: none Patient feedback: Patient satisfied with anesthetic care.
[2025-04-04] MEDS: MULTIVIT/MIN/PREN/FOL AC/IRON TABLET 1 TAB PO (10:23)
[2025-04-04] MEDS: SIMETHICONE 80 MG TAB.CHEW PO ×3 (10:23→18:56)
[2025-04-04] MEDS: DOCUSATE SODIUM 100 MG CAPSULE PO ×2 (10:23→18:56)
--- NOTE | 2025-04-04 10:50 | PC.NURSE ---
0910-RN in room to set up mother pumping (baby transferred to [facility]). Instructions given on use and cleaning of pump parts. Demonstrated pumping and mother pumped for 15 with no pain. Mother is using flange size 24. Directed mother to section of Mom & Baby Guide and instructed parents to watch New Baby Video. Parents verbalized understanding.
--- NOTE | 2025-04-04 10:55 | OBPPTRN ---
0743-Patient transferred to post room #287 via bed. Support person present. Oriented to unit, room, information board, rooming in, admission packet and security measures. Patient verbalizes understanding.
[2025-04-04 12:22] VITALS: BP 110/55; PULSE 82; RESP 18; TEMP 37.4; O2SAT 96
--- NOTE | 2025-04-04 13:34 | PC.NURSE ---
1330-Patient left via wheelchair on a 4 hr. pass to visit baby at [facility].
--- NOTE | 2025-04-04 18:30 | PC.NURSE ---
1122-RN received call from patient stating that she was on her way back from visiting baby at [facility]; they were stuck in traffic.
[2025-04-04 18:52] VITALS: BP 123/66; PULSE 105; RESP 16; TEMP 36.9; O2SAT 95
[2025-04-04] MEDS: IBUPROFEN 600 MG TABLET PO (18:57)
[2025-04-05] MEDS: ACETAMINOPHEN 325 MG TABLET 650 MG PO ×2 (02:10→08:20)
[2025-04-05] MEDS: IBUPROFEN 600 MG TABLET PO ×2 (02:10→08:20)
--- NOTE | 2025-04-05 07:50 | P.DS_ITS ---
DS: Admitting Diagnosis Discharge Date 04/05/25 Admitting Diagnosis intrauterine at term IUGR DS: Discharge Diagnosis Discharge Diagnosis (1) delivery delivered: Code(s): O82 - Encounter for delivery without indication Status: Acute OB - DS: Summary OB Procedures : None OB Procedures Intrapartum: OB Procedures: : None Peripartum Data Infant Delivery Method: Section Procedures: Procedures Operation Date: 04/03/25 18:25 Actual Procedure Side Surgeon p Section Edouard Abraham MD complications: none Status at Discharge Functional status at discharge: independent ambulation Overall status at discharge: patient is progressing back to baseline Time Spent with Patient Time attestation: Total time spent providing and/or coordinating discharge services: Time spent: Less than 30 minutes Exam Const: General: comfortable and no acute distress Resp: Effort & Inspection: normal respiratory effort Auscultation: clear to auscultation bilaterally Cardio: Rate: regular rate GI: Inspection: non-distended GI Palp: Yes Soft to palpation, No Firmness to palpation present (GI), Yes Tenderness to palpation present (GI) (mild tenderness over incision ) and No Guarding due to palpation present (GI) Auscultation: normal bowel sounds Psych: Appearance: grossly normal Mental Status: mental status grossly normal DS: Data Data Completed and Pending Pending studies at discharge: Pending at discharge 04/03/25 21:11 Surgical [PTH] Routine Discharge Plan Discharge Discharging Clinician: Edouard Abraham Patient Disposition: Home Activity: as tolerated and pelvic rest Diet: regular Patient Instructions: Antibiotic Form, (DC) Patient Language: Luxembourgish Stand Alone Forms: General Discharge Information Follow-up/Referrals: Edouard Abraham MD [Primary Care Provider] - 1 Week (JUAN dressing removal) Discharge Medications: New oxycodone-acetaminophen 5-325 mg tablet 1 tablet PO Q6H PRN (Reason: pain) Qty: 28 0RF ibuprofen 600 mg tablet 600 mg PO Q6H PRN (Reason: pain) Qty: 30 0RF Continued triamcinolone acetonide 0.025 % lotion 1 applic topical BID Qty: 60 0RF ferrous sulfate 324 mg (65 mg iron) tablet,delayed release (DR/EC) 324 mg PO DAILY Qty: 30 3RF M- Plus 27 mg iron- 1 mg tablet See Rx Instructions .ROUTE .COMPLEX Qty: 30 3RF Dose Instruction: TAKE 1 TABLET BY MOUTH EVERY DAY Rx Instructions: TAKE 1 TABLET BY MOUTH EVERY DAY Discontinued aspirin [Adult Low Dose Aspirin] 81 mg tablet,delayed release (DR/EC) 81 mg PO DAILY Date of admission: 04/01/25 20:25 Primary Care Provider: Edouard Abraham Admitting Provider: Edouard Abraham Attending physician on admission: Edouard Abraham Condition: Stable
[2025-04-05 08:16] VITALS: BP 130/71; PULSE 93; RESP 18; TEMP 36.6; O2SAT 95
[2025-04-05] MEDS: SIMETHICONE 80 MG TAB.CHEW PO (08:20)
[2025-04-05] MEDS: DOCUSATE SODIUM 100 MG CAPSULE PO (08:20)
[2025-04-05] MEDS: MULTIVIT/MIN/PREN/FOL AC/IRON TABLET 1 TAB PO (08:20)
--- NOTE | 2025-04-05 10:33 | PC.NURSE ---
Introductions were made. Consulted with patient to assess needs related to . Mother states that she has been pumping but not getting much . Discussed that this is normal in the first few days after delivery. Mother was not pumping every 3 hours - educated mother about consistency of pumping and the importance of stimulating the breast often while is not with mother to encourage milk production. Handouts were provided with information on cleaning breast pump after each use and storage of breast milk. Mother is being discharged today and was given syringes to collect her milk. OP service information provided. RN updated.
--- NOTE | 2025-04-06 09:06 | P.HP_ITS ---
H&P: HPI History of Present Illness Date/Time: 04/03/25 17:52 Chief Complaint: intrauterine at term IUGR hepatitis B obesity Narrative: 20-year-old who presents for induction of labor at 37 weeks for for IUGR. Patient had an ultrasound on 03/23/2025 that showed EFW less than the 3rd percentile. Medical history is also complicated by hepatitis-B. Viral load has been undetectable throughout . Will plan for hepatitis B vaccine and immunoglobulin for after . Review of Systems Cardiovascular: Cardiovascular: Denies chest pain, Denies leg edema, Denies palpitations, Denies dyspnea and Denies dyspnea on exertion Respiratory: Respiratory: Denies cough, Denies dyspnea and Denies dyspnea on exertion Gastrointestinal: Gastrointestinal: Denies abdominal pain, Denies constipation, Denies diarrhea, Denies nausea and Denies vomiting Genitourinary: Genitourinary: Denies hematuria, Denies urinary frequency, Den ies dysuria, Denies pelvic pain, Denies urinary incontinence and Denies vaginal discharge Neurologic: Reports system reviewed and no additional complaints, except as documented Psychiatric: Psychiatric: Reports no additional psychiatric complaints Endocrine: Endocrine: Denies palpitations PMFSH Past Medical History Medical History Healthy female adult Surgical History Surgical History No history of previous surgery Family History Family History Other Patient denies significant medical history Social History Social History Smoking status: Current every day smoker Tobacco type: e-cigarettes/vaping Second hand tobacco smoke exposure: No Alcohol intake: never Substance use: never Substance use type: does not use Do You Feel Safe in your Home?: Yes Lack of Transportation: No Lack of Food: Never True Current Housing: I Have Housing Concerned About Future Housing: No Difficulty Paying Gas/Electric Bills: No Difficulty Paying for Meds: No Currently Unemployed: No Education: High School Diploma/GED Difficulty w/ Childcare or Family Care: No Living arrangements: with family Occupation/Education: occupation Gender identity (if verbalized by the patient): Female Sexual Orientation (if Verbalized by the Patient): Straight or Heterosexual Spiritual care concerns: No Meds Home Medications and Allergies Home Medications Medication Instructions Recorded Confirmed Type triamcinolone acetonide 0.025 % 1 applic topical BID #60 mL 02/28/25 03/26/25 Rx lotion ferrous sulfate 324 mg (65 mg 324 mg PO DAILY #30 tabs 03/15/25 03/26/25 Rx iron) tablet,delayed release vitamin with calcium See Rx Instructions .Route 03/15/25 03/26/25 Rx no.72-iron 27 mg-folic acid 1 mg .COMPLEX #30 tabs tablet (M-Rupinder Plus) ibuprofen 600 mg tablet 600 mg PO Q6H PRN pain #30 tabs 04/05/25 Rx oxycodone-acetaminophen 5 mg-325 1 tablet PO Q6H PRN pain #28 tabs 04/05/25 Rx mg tablet Allergies Allergy/AdvReac Type Severity Reaction Status Date / Time No Known Allergies Allergy Verified 03/26/25 09:23 Exam Const: General: no acute distress Eyes: EOM: EOMs intact bilaterally Neck: Neck: supple Thyroid: thyroid normal Chest: Breast/axilla inspection: normal inspection of the breasts Breast/axilla palpation: normal palpation of the breasts, normal palpation of the axillae and no axillary lymphadenopathy Resp: Effort & Inspection: normal respiratory effort Auscultation: clear to auscultation bilaterally Cardio: Rate: regular rate Rhythm: regular rhythm GI: Inspection: non-distended and other (Gravid) GI Palp: Yes Soft to palpation, No Tenderness to palpation present (GI) and No Guarding due to palpation present (GI) Auscultation: normal bowel sounds : Speculum Exam - Vagina: No vaginal bleeding OB/external & speculum: external exam normal; No vaginal bleeding Skin: General skin exam: normal color and no rashes or lesions noted Neuro: Cognition (Neuro): normal cognition Speech: normal speech Extrem: General: normal to inspection Psych: Mental Status: mental status grossly normal Affect: normal affect Assessment and Plan Assessment and plan (1) : Code(s): Z34.90 - Encounter for supervision of normal , unspecified, unspecified trimester Status: Acute Assessment and Plan: -tobacco use -trichomonas infection in early -BMI 40 -anemia -couple of small subchronic hematomas measuring 3.1 x 2.0 cm and 2.1 x 0.7 cm (10/18) -Hepatitis B- repeat viral load at 26-28 wk, initiate antiviral if >200k- Hep B viral load undetectable (02/09) -ultrasound showed EFW less than the 3rd percentile, recommended moving towards delivery Patient presented for induction of labor. She received Cervidil followed by vaginal misoprostol. Patient then had Pitocin augmentation for over 12 hours. Cervical Cohn balloon was attempted to be placed. Cervix remained extremely posterior and high in the pelvis. Pelvis also felt narrow. Patient then had repeat vaginal misoprostol. Cervix remained 1-2 cm, high and posterior. Cervical catheter balloon was then placed via speculum assistance. Pitocin was then administered. Cohn balloon was removed and patient remained 2 cm. Discussed failed induction with patient. Recommended proceeding with primary C- section. Risks, benefits, alternatives reviewed. Patient consents to proceed with primary for failed induction of labor for IUGR (2) Intrauterine growth restriction (IUGR) affecting care of mother, third trimester, single gestation: Code(s): O36.5930 - Maternal care for other known or suspected poor growth, third trimester, not applicable or unspecified Status: Acute (3) Obesity: Code(s): E66.9 - Obesity, unspecified Status: Acute (4) Hepatitis B antibody positive in blood: Code(s): R76.8 - Other specified abnormal immunological findings in serum Status: Acute
== END 2025-04-05 11:22 | disposition home or self-care (01) | DRG 540 ==
LOC: ANHLDR 20:34 → ANHOBPP 04-04 00:59 → ANHOB2 04-04 07:47
PROVIDERS: Admitting Provider Student in an Organized Health Care Education/Training Program; PCP Student in an Organized Health Care Education/Training Program; Visit Provider Student in an Organized Health Care Education/Training Program
PROC: 10D00Z1 Extraction of Products of Conception, Low, Open Approach (ICD-10-PCS; CPT 59514; principal; 2025-04-03 18:25)
DX: O36.5930 Maternal care for other known or suspected poor fetal growth, third trimester, not applicable or unspecified (principal); O61.0 Failed medical induction of labor; Z37.0 Single live birth; Z3A.37 37 weeks gestation of pregnancy; R76.8 Other specified abnormal immunological findings in serum; O99.214 Obesity complicating childbirth
CPT/HCPCS: 36415; 85025; 85055; 86593; 86703; 86850; 86900; 86901; 88307; A9270; G0432; J0690; J1885; J2250; J2274; J2371; J2405; J2590; J7120

== ENCOUNTER 2025-05-19 21:26 | Emergency (ER) | payer OTHER, SELFPAY ==
--- NOTE | ~2025-05-19 | US_ITS ---
Limited Abdominal Sonogram: Real-time sonographic imaging of the right upper quadrant was performed. Clinical History: Abnormal enzyme levels Findings: The liver appears normal with no evidence of mass lesion or bile duct dilatation. Main por corine vein demonstrates normal direction of flow. The gallbladder is contracted, with suspected stone a nd wall thickening up to 8 mm. The common bile duct measures 4 mm. The visualized pancreas, aorta, a nd IVC are unremarkable. Impression: Contracted gallbladder with probable stone and wall thickening. Correlate clinically for acute cholec ystitis. Consider HIDA scan as indicated. Reviewed, dictated and finalized at location . Impression: Contracted gallbladder with probable stone and wall thickening. Correlate clini solitario for acute cholecystitis. Consider HIDA scan as indicated.
--- NOTE | ~2025-05-19 | CT_ITS ---
CT of the Abdomen and Pelvis: Indication: Abdominal pain Technique: 2.5 mm axial scans were obtained through the abdomen and pelvis following intravenous adm inistration of 100 cc of Omnipaque 350. Dose reduction technique was used on this scan by utilizing a utomated exposure control and iterative reconstruction technique. The dose-length product (DLP) was 1 229.49 mGy-cm. Findings: Scans through the lung bases are unremarkable. The liver, spleen, pancreas, adrenals and kidneys are within normal limits. Gallbladder is relatively contracted with mild diffuse wall thickening, nonspecific. No evidence of aortic aneurysm. No lymph adenopathy. No bowel obstruction or bowel wall thickening. There is no evidence to suggest acute appendicitis. Images through the pelvis were performed. Urinary bladder unremarkable. No pelvic mass evident. No as cites. Impression: Mild gallbladder wall thickening is nonspecific, possibly due to contracted gallbladder. Correlate cl inically. No other significant findings. Reviewed, dictated and finalized at [facility]. Impression: Mild gallbladder wall thickening is nonspecific, possibly due to contracted gal lbladder. Correlate clinically. No other significant findings.
[2025-05-19 21:30] VITALS: BP 145/78; PULSE 70; RESP 16; TEMP 36.6; O2SAT 96
[2025-05-20] VITALS (17 sets, daily range): BP systolic 96–123; BP diastolic 61–100; PULSE 41–58; RESP 14–21; TEMP 36.5; O2SAT 92–100
[2025-05-20 01:32] LABS: Basophils Percent Auto 0.5 % (0.2-1.2); Eosinophils Absolute Auto 0.3 K/mm3 (0-0.3); Eosinophils Percent Auto 3.6 % (0-4.4); Hematocrit 32.8 % (37.0-47.0); Hemoglobin 9.7 g/dL (12.0-15.0); Immature Granulocyte Absolute 0.02 K/mm3 (0.00-0.031); Immature Granulocyte Percent A 0.2 % (0-0.5); Lymphocytes Absolute Auto 2.19 K/mm3 (0.9-3.2); Lymphocytes Percent Auto 26.3 % (18.3-44.2); Mean Corpuscular HGB Conc 29.6 g/dl (32-36); Mean Corpuscular Hemoglobin 21.5 pg (26-34); Mean Corpuscular Volume 72.7 fl (80-100); Mean Platelet Volume 10.4 fl (7.4-10.4); Monocytes Absolute Auto 0.4 K/mm3 (0.1-0.6); Neutrophils Absolute Auto 5.4 K/mm3 (1.3-6.7); Neutrophils Percent Auto 64.4 % (45.5-73.1); Platelet Count Result 341 k/mm3 (150-375); Red Blood Count 4.51 M/mm3 (4.2-5.4); White Blood Count 8.3 K/mm3 (4.5-10.0)
[2025-05-20 01:33] LABS: BEDSIDEPREGUCG Negative (Negative)
[2025-05-20 01:39] LABS: Add Urine Microscopic? YES; Appearance Urine Cloudy (Clear); Bacteria Urine None Seen /hpf; Bilirubin Urine Negative (Negative); Blood Urine Negative (Negative); Color Urine Yellow (Yellow); Glucose Urine UA Negative (Negative); Ketones Urine Trace mg/dL (Negative); Leukocyte Esterase Ur Negative LEU/UL (Negative); Nitrate Urine Negative (Negative); Non Pathogenic Casts 0-2; Protein Urine Negative (Negative); RBC Urine 0-2 /hpf (0-2); Specific Grav Ur 1.022 (1.001-1.035); Squamous Epithelial Cell Urine Few /hpf (Few); WBC Urine 0-5 /hpf (0-3); pH Urine 5.5 (5.0-9.0)
[2025-05-20 01:45] LABS: Alanine Aminotransferase 98 U/L (6-35); Albumin Level 4.3 g/dL (3.5-5.1); Alkaline Phosphatase 115 U/L (38-126); Anion Gap 10 mmol/L (4-12); Aspartate Amino Transferase 86 U/L (14-36); Bilirubin,Total 0.2 mg/dL (0.2-1.3); Blood Urea Nitrogen 4 mg/dL (7-17); Calcium 8.4 mg/dL (8.4-10.2); Carbon Dioxide 24 mmol/L (22-30); Chloride 107 mmol/L (98-107); Estimated CRCL calculation 130 ml/min; Estimated Glomerular Filt Rate > 60; Glucose 95 mg/dL (65-110); Lipase 41 U/L (23-300); Potassium 3.5 mmol/L (3.4-5.0); Sodium 141 mmol/L (137-145)
[2025-05-20 02:01] LABS: Hypochromasia 1+; Microcytosis 2+ (NORMAL); Platelet Estimate Adequate (Adequate)
[2025-05-20 02:02] LABS: Schistocytes None Seen
--- NOTE | 2025-05-20 03:06 | ED_ITS ---
HPI - Abdominal Pain General Chief Complaint: Abdominal Pain Stated Complaint: back pain, abdominal, 1 month Time Seen by Provider: 05/20/25 01:15 Source: patient and other (Mother, partner) Mode of arrival: ambulatory Limitations: no limitations History of Present Illness HPI narrative: This is a 20 year 001 female presents abdominal pain and pain. Patient is greater than 6 weeks after undergoing Caesarean section 2019. Her OB Gyne is Dr. Abraham GERD visit. She denies any fevers or chills. States the incision healed well denies any vaginal discharge or bleeding. She denies any dysuria. Pain is around her upper abdomen wraps around her back. This has been going on for 4 days and is associated with nausea but no vomiting. Symptoms began after eating pizza rolls. She had a leftover pain pill and took this. Denies drinking alcohol. No other abdominal surgeries. She has had loose stools. Notes that the pain in her back seems like where the epidural had been placed. Caesarean section and been performed due to the baby being up high. Related Data Allergies Allergy/AdvReac Type Severity Reaction Status Date / Time No Known Allergies Allergy Verified 04/30/25 14:45 [facility] Past Medical History Medical History delivery delivered Healthy female adult Surgical History Surgical History History of delivery Family History Family History Other Patient denies significant medical history Social History Social History Smoking status: Current every day smoker Tobacco type: e-cigarettes/vaping Second hand tobacco smoke exposure: No Alcohol intake: never Substance use: never Substance use type: does not use Do You Feel Safe in your Home?: Yes Lack of Transportation: No Lack of Food: Never True Current Housing: I Have Housing Concerned About Future Housing: No Difficulty Paying Gas/Electric Bills: No Difficulty Paying for Meds: No Currently Unemployed: No Education: High School Diploma/GED Difficulty w/ Childcare or Family Care: No Living arrangements: with family Occupation/Education: occupation Additional occupation/education comments: works at [employer] Gender identity (if verbalized by the patient): Female Sexual Orientation (if Verbalized by the Patient): Straight or Heterosexual Spiritual care concerns: No Exam 2 Narrative: GENERAL: Well-appearing, well-nourished, and in no acute distress. HEAD: Normocephalic, atraumatic. EYES: Non injected, non icteric ENT: Nares clear, no rhinorrhea or epistaxis. Gross auditory acuity intact. NECK: Supple. No meningismus. CHEST: Speaking in full sentences. No respiratory distress. HEART: Regular rate and rhythm. . ABDOMEN: Soft, nondistended. No rigidity or guarding. Not peritoneal. Blanton sign negative. EXTREMITIES: Normal range of motion. No lower extremity edema. SKIN: Warm, dry, no rash. NEURO: No focal deficits. Alert and oriented. Answering questions. Following commands. Normal speech without aphasia or dysarthria. PSYCH: Normal mood and affect. Course Vital Signs Vital signs: Vital Signs Temperature 98 F 05/19/25 21:30 Pulse Rate 70 05/19/25 21:30 Respiratory Rate 16 05/19/25 21:30 Blood Pressure 145/78 H 05/19/25 21:30 Pulse Oximetry 96 05/19/25 21:30 Oxygen Delivery Room Air 05/19/25 21:30 Temperature 97.7 F 05/20/25 03:37 Pulse Rate 41 L 05/20/25 08:16 Respiratory Rate 14 05/20/25 08:16 Blood Pressure 96/61 L 05/20/25 08:16 Pulse Oximetry 98 05/20/25 08:16 Oxygen Delivery Room Air 05/19/25 21:30 MDM - Abdominal Pain MDM Narrative Medical decision making narrative: 1 female presents with upper abdominal pain the wraps around her back of 4 days duration associated with nausea as well as loose stools. Approximately 6 weeks from a Caesarean section. In the emergency department she is afebrile with vital signs notable for hypertension. Preg test negative. Microcytic anemia, stable from previous. AST and ALT are elevated, slightly more so than they had been previously in 2021 and had been normal since. Will proceed with CT imaging. Analgesia and antiemetic had been ordered for patient but she declined per nurse. Based on the CT imaging, will proceed with right upper quadrant ultrasound. It is 4:40am and I discussed with the patient and her partner at bedside that ultrasound would be in the hospital at around 7 or 8 this morning. Will await that study. Order placed. Studies as below. Patient has been resting comfortably and without recurrence of the symptoms that brought her to the emergency department. We discussed biliary colic as well as the spectrum of other more serious conditions. Discussed that her gender, reproductive status, weight, and dietary habits can all contribute and some of these are modifiable and others not. Advised trialing a diet that avoids greasy/fatty food. Provided referrals/contact information for the primary care physician and, if patient continues to have episodes, the name of a general surgeon with whom she can see outpatient for discussion of elective removal. Patient provided a work note. Differential Diagnosis Differential diagnosis: Likely abdominal pain, constipation, diverticulitis, endometriosis, gastroenteritis, pancreatitis and other (Gastritis , biliary pathology; considered postoperative complications; considered endometritis) Lab Data Attestation: I reviewed the patient's lab results. 05/20/25 01:22 05/20/25 01:22 Labs: Lab Results 05/20/25 05/20/25 05/20/25 Range/Units 01:22 01:28 01:32 WBC 8.3 (4.5-10.0) K/mm3 RBC 4.51 (4.2-5.4) M/mm3 Hgb 9.7 L (12.0-15.0) g/dL Hct 32.8 L (37.0-47.0) % MCV 72.7 L (80-100) fl MCH 21.5 L (26-34) pg MCHC 29.6 L (32-36) g/dl RDW 16.0 H (11.5-14.5) % Plt Count 341 D (150-375) k/mm3 MPV 10.4 (7.4-10.4) fl Immature Gran % (Auto) 0.2 (0-0.5) % Neut % (Auto) 64.4 (45.5-73.1) % Lymph % (Auto) 26.3 (18.3-44.2) % [place] % (Auto) 5.0 (2.6-8.5) % Eos % (Auto) 3.6 (0-4.4) % Baso % (Auto) 0.5 (0.2-1.2) % Lymph # (Auto) 2.19 (0.9-3.2) K/mm3 [place] # (Auto) 0.4 (0.1-0.6) K/mm3 Eos # (Auto) 0.3 (0-0.3) K/mm3 Baso # (Auto) 0.0 (0.0-0.1) K/mm3 Abs Immat Gran (auto) 0.02 (0.00-0.031) K/mm3 Absolute Neuts (auto) 5.4 (1.3-6.7) K/mm3 Absolute Nucleated RBC 0.000 (0.0-0.012) K/mm3 Band Neutrophils % Not Reportable Nucleated RBC % 0.0 (0.0-0.2) % Platelet Estimate Adequate (Adequate) Hypochromasia 1+ Microcytosis 2+ (NORMAL) Schistocytes None seen Sodium 141 (137-145) mmol/L Potassium 3.5 (3.4-5.0) mmol/L Chloride 107 (98-107) mmol/L Carbon Dioxide 24 (22-30) mmol/L Anion Gap 10 (4-12) mmol/L BUN 4 L (7-17) mg/dL Creatinine 0.76 (0.7-1.0) mg/dL Estim Creat Clear Calc 130 ml/min Estimated GFR > 60 (59 - ) Glucose 95 (65-110) mg/dL Calcium 8.4 (8.4-10.2) mg/dL Total Bilirubin 0.2 (0.2-1.3) mg/dL AST 86 H (14-36) U/L ALT 98 H (6-35) U/L Alkaline Phosphatase 115 (38-126) U/L Total Protein 8.0 (6.3-8.2) g/dL Albumin 4.3 (3.5-5.1) g/dL Lipase 41 (23-300) U/L Urine Color Yellow (Yellow) Urine Appearance Cloudy H (Clear) Urine pH 5.5 (5.0-9.0) Ur Specific [place] 1.022 (1.001-1.035) Urine Protein Negative (Negative) mg/dL Urine Glucose (UA) Negative (Negative) mg/dL Urine Ketones Trace H (Negative) mg/dL Ur Blood (Man) Negative (Negative) Urine Nitrate Negative (Negative) Urine Bilirubin Negative (Negative) Urine Urobilinogen 1.0 (<2.0) mg/dL Leukocyte Esterase Rfl Negative (Negative) ABIDA/UL Urine RBC 0-2 (0-2) /hpf Urine WBC 0-5 (0-3) /hpf Ur Squamous Epith Cells Few (Few) /hpf Urine Bacteria None seen /hpf Urine Casts 0-2 POC Urine HCG, Qual Negative (Negative) Imaging Data Radiologist's impression: ITS Impressions Abdomen/Pelvis CT 05/20/25 07:03 Impression: Mild gallbladder wall thickening is nonspecific, possibly due to contracted gallbladder. Correlate clinically. No other significant findings. Abdomen Ultrasound 05/20/25 07:34 Impression: Contracted gallbladder with probable stone and wall thickening. Correlate clinically for acute cholecystitis. Consider HIDA scan as indicated. CT Abd & Pelvis with contrast Stat Rad: Contracted gallbladder but with hyper enhancement of the pond with surrounding pericholecystic fluid. No definite stone is identified. Recommend ultrasound. No acute bowel process. Normal appendix. No hydronephrosis. Discharge Plan Discharge Clinical Impression: Abdominal pain, epigastric, Microcytic anemia, Gallbladder attack Patient Disposition: Home Condition: Stable Instructions: Antibiotic Form, Biliary Colic (ED), Anemia (ED), Epigastric Pain (ED) Additional Instructions: As we discussed, you likely had a gallbladder attack known as biliary colic. You can read about this and attempt to modify her diet to see if symptoms happen again if avoiding fatty foods. The name of a general surgeon is listed below whom you can follow up with if you have episodes that come on again similarly and resolve . Return to the emergency department any new or worsening symptoms. If you do not have a primary care physician, the name of the doctors listed below. Patient Language: Greenlandic Prescriptions: No Action triamcinolone acetonide 0.025 % lotion 1 applic topical BID Qty: 60 0RF ferrous sulfate 324 mg (65 mg iron) tablet,delayed release (DR/EC) 324 mg PO DAILY Qty: 30 3RF M-Rupinder Plus 27 mg iron- 1 mg tablet See Rx Instructions .ROUTE .COMPLEX Qty: 30 3RF Dose Instruction: TAKE 1 TABLET BY MOUTH EVERY DAY Rx Instructions: TAKE 1 TABLET BY MOUTH EVERY DAY Follow-up/Referrals: Ilan Harris MD [Physician] - (family practice) UNKNOWN,DOCTOR [Primary Care Provider] - Jorge Choe, [Physician] - (general surgery) Stand Alone Forms: Work/School Release IP Time of Disposition: 08:09
== END 2025-05-20 08:27 | disposition home or self-care (01) ==
PROVIDERS: Emergency Provider Student in an Organized Health Care Education/Training Program
DX: K80.20 Calculus of gallbladder without cholecystitis without obstruction (principal); R10.13 Epigastric pain; D50.9 Iron deficiency anemia, unspecified; F17.290 Nicotine dependence, other tobacco product, uncomplicated
CPT/HCPCS: 36415; 74177; 76705; 80053; 81001; 81025; 83690; 85025; 99284; Q9967

== ENCOUNTER 2025-06-05 06:27 | Emergency (ER) | payer OTHER, SELFPAY ==
--- OUTSIDE RECORDS SUMMARY | 2025-06-05 06:30 | XMS_ITS ---
Author Organization Unknown Plan of Treatment Description Planned Activity Planned Timing [facility] is a provider organization who partners directly with Health Plans and provides integrated primary care, behavioral health, and social sciences instructor for an attributed population Letter encounter to patientTelephone encounter May 17, 2025Jul 2024 Patient Care team information Name Category Status Period Participants - - Proposed period not known -
--- OUTSIDE RECORDS SUMMARY | 2025-06-05 06:30 | XMS_ITS | Clinical Summary ---
Author Organization [facility] [employer] Address [address] 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 This disclosure is being madepursuant to the Care Everywhere program and may not contain all information available regarding this patient. Last updated 18.[facility] Allergies No known active allergies Medications * [...] 12/23/2021 Assessment & Plan (12/26/2021 4:15 PM DRAPERY HEMMER AUTOMATIC): Assessment: Charles is a 16 year old [...] afternoon Assessment & Plan (12/25/2021 1:34 PM DRAPERY HEMMER AUTOMATIC): Assessment: Charles is a 16 year old [...] facility Assessment & Plan (12/24/2021 3:46 PM DRAPERY HEMMER AUTOMATIC): Assessment: Charles is a 16 year old [...] consultation Assessment & Plan (12/23/2021 10:40 PM DRAPERY HEMMER AUTOMATIC): Assessment: Charles is a 16 year old [...] and acetaminophen levels. Plan: - admit to [facility] team, Dr. Bob - on admission, obtaining CBC, CMP, Acetaminophen level, PT/PTT/INR, CK - mIVF - regular diet - vitals q4h - I/Os - central intake consultation when medically cleared Iron deficiency anemia 12/23/2021 Assessment & Plan (12/26/2021 4:15 PM DRAPERY HEMMER AUTOMATIC): Assessment: Karans CBC with a low hemoglobin [...] persists Assessment & Plan (12/25/2021 1:35 PM DRAPERY HEMMER AUTOMATIC): Assessment: Karans CBC with a low hemoglobin [...] persists Assessment & Plan (12/24/2021 1:33 PM DRAPERY HEMMER AUTOMATIC): Assessment: Julio César CBC with a low hemoglobin (8.8) and low MCV is concerning for iron deficiency anemia. This is likely due to inadequate dietary intake of iron. Plan: - start MVI with iron - nutrition consultation Assessment & Plan (12/23/2021 10:41 PM DRAPERY HEMMER AUTOMATIC): Assessment: Julio César CBC with a low [...] 01/06/2022 Assessment & Plan (12/26/2021 4:17 PM DRAPERY HEMMER AUTOMATIC): Assessment: Karans initial UA at the outside hospital was concerning for a UTI with nitrites and some WBC with repeat UA at [facility] negative for nitrites but with evidence of pyuria with WBC and urine culture grew >100k cfus e coli. Plan to treat with course of nitrofurantoin. Plan: - Prescription for course of nitrofurantoin provided to continue at discharge Assessment & Plan (12/25/2021 1:35 PM DRAPERY HEMMER AUTOMATIC): Assessment: Karans initial UA at the outside hospital was concerning for a UTI with nitrites and some WBC, however, there were many squamous epithelial cells present which makes the specimen less reliable. She is not currently complaining of symptoms of a UTI. Repeat UA here was negative for LE and nitrites. Plan: - continue to monitor - Urine culture at [facility] pending Assessment & Plan (12/24/2021 1:33 PM DRAPERY HEMMER AUTOMATIC): Assessment: Charles's initial UA at the outside hospital was concerning for a UTI, however, there were many squamous epithelial cells present which makes the specimen less reliable. She is not currently complaining of symptoms of a UTI. Repeat UA here was negative for LE and nitrites. Plan: - continue to monitor Assessment & Plan (12/23/2021 10:42 PM DRAPERY HEMMER AUTOMATIC): Assessment: Charles's initial UA at the outside hospital was concerning for a UTI, however, there were many squamous epithelial cells present which makes the specimen less reliable. She is not currently complaining of symptoms of a UTI. Plan: - repeat UA with reflex to culture here - consider treating for UTI if repeat UA concerning Immunizations Immunization Administration Dates Next Due DTAP/IPV [...] on file Legal Sex Female 5:44 AM DRAPERY HEMMER AUTOMATIC Gender Identity Not on file Sexual Orientation Not on file Last Filed Vital Signs Vital Sign Reading Time Taken Comments Blood Pressure 122/55 11/13/2024 10:36 AM DRAPERY HEMMER AUTOMATIC Pulse 71 11/13/2024 10:36 AM DRAPERY HEMMER AUTOMATIC Temperature 36.3 C (97.4 F) 03/05/2022 2:12 PM CDT Respiratory Rate 16 12/31/2021 1:57 PM DRAPERY HEMMER AUTOMATIC Oxygen Saturation 100% 12/31/2021 1:57 PM DRAPERY HEMMER AUTOMATIC Inhaled Oxygen Concentration - - Weight 113.4 kg (250 lb) 11/13/2024 10:36 AM DRAPERY HEMMER AUTOMATIC Height 168.9 cm (5' 6.5) 11/13/2024 10:36 AM CS T Body Mass Index 39.75 11/13/2024 10:36 AM DRAPERY HEMMER AUTOMATIC Plan of Treatment Health Maintenance Due Date Last Done Comments PNEUMOCOCCAL VACCINE (1 of 1 - PPSV23, PCV20, or PCV21) 2011 03/04/2006, 2005, 2005, Additional history exists [...] OB-GROUP B STREP SCREEN 03/17/2025 INFLUENZA VACCINE (#1) 2025 ZOSTER VACCINE (1 of 2) 2055 [...] Where can I go for more information? [employer] ( ) www.aap.org HealthyChildren.org www.healthychildren.org U.S. Department of Health and Human Services www.hhs.gov Website and free downloadable frankie for smartphones: http://www.SafetyTat/ Use safety retraint in car Lifestyle On track( 022 2:08 PM CDT) No Bailey Tomlinson RN Procedures Procedure Name Priority Date/Time Associated Diagnosis Comments CHLAMYDIA + GC AMPLIFIED PROBE Routine 01/27/2022 4:24 PM DRAPERY HEMMER AUTOMATIC Hx of chlamydia infection HIV-1 HIV-2 ANTIBODY + HIV P24 AG PANEL AM Draw 12/28/2021 6:25 AM DRAPERY HEMMER AUTOMATIC from Last 3 Months or Most Recently Relevant to Health Maintenance Results * CHLAMYDIA + GC AMPLIFIED PROBE (01/27/2022 4:24 PM DRAPERY HEMMER AUTOMATIC) Chlamydia KADIE Urine Negative Negative [facility] INSURANCE BILL GC KADIE Urine Negative Negative [facility] INSURANCE BILL Microbiology URINE / Unknown 01/27/2022 4 :24 PM DRAPERY HEMMER AUTOMATIC 01/28/2022 Narrative Resulting Agency Comment Lab Testing performed at: [address] [id number] Juliet Agustin MD LAB - MICROBIOLOGY ORDERABLES Final Result [facility] INSURANCE BILL [address] [place] [address] * HIV-1 HIV-2 ANTIBODY + HIV P24 AG PANEL (12/28/2021 6:25 AM DRAPERY HEMMER AUTOMATIC) Pathologist [facility] HIV1/2 Ab + P24 Ag Non Reactive Non Reactive 12/28/2021 6:30 PM DRAPERY HEMMER AUTOMATIC [facility] Blood BLOOD SPECIMEN / Unknown Lab Venipuncture / Unknown 12/28/2021 6:25 AM DRAPERY HEMMER AUTOMATIC 12/28/2021 7:30 AM DRAPERY HEMMER AUTOMATIC Narrative [facility] - 12/28/2021 6:30 PM DRAPERY HEMMER AUTOMATIC No Laboratory evidence of HIV infection. Faith Sommer MD LAB - CHEMISTRY ORDERABLES Final Result [facility] [address] [place] [address] from Last 3 Months or Most Recently Relevant to Health Maintenance Insurance SELF PAY NO INSURANCE Member Subscriber Plan / Payer (Ef fective for All Dates) Name:Charles An Member ID:Not on file Relation to Subscriber:Not on file Name:CHARLES AN Subscriber ID:Not on file (Home) Address: [facility] [address] [place] [address] Payer ID:Not on file Group ID:Not on file Type:Self Pay Address: [place], [place] * Guarantor: CHARLES AN Account Type Relation to Patient Date of Phone Billing Address Personal/Family [address] [place] [address] Advance Directives * Full Code (Latest Code Status on File) Date Activated Date Inactivated Comments 12/26/2021 4:57 PM 12/31/2021 5:12 PM * Full Code Date Activated Date Inactivated Comments 12/23/2021 8:34 PM 12/26/2021 4:45 PM
[2025-06-05 06:36] VITALS: BP 131/69; PULSE 89; RESP 15; TEMP 36.9; O2SAT 99
--- OUTSIDE RECORDS SUMMARY | 2025-06-05 07:17 | XMS_ITS | Clinical Summary ---
Author Organization [facility] [employer] Address [address] 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 This disclosure is being madepursuant to the Care Everywhere program and may not contain all information available regarding this patient. Last updated 18.[facility] Allergies No known active allergies Medications * [...] 12/23/2021 Assessment & Plan (12/26/2021 4:15 PM FISH CLEANER): Assessment: Charles is a 16 year old [...] afternoon Assessment & Plan (12/25/2021 1:34 PM FISH CLEANER): Assessment: Charles is a 16 year old [...] facility Assessment & Plan (12/24/2021 3:46 PM FISH CLEANER): Assessment: Charles is a 16 year old [...] consultation Assessment & Plan (12/23/2021 10:40 PM FISH CLEANER): Assessment: Charles is a 16 year old [...] and acetaminophen levels. Plan: - admit to [facility] team, Dr. Bob - on admission, obtaining CBC, CMP, Acetaminophen level, PT/PTT/INR, CK - mIVF - regular diet - vitals q4h - I/Os - central intake consultation when medically cleared Iron deficiency anemia 12/23/2021 Assessment & Plan (12/26/2021 4:15 PM FISH CLEANER): Assessment: Karans CBC with a low hemoglobin [...] persists Assessment & Plan (12/25/2021 1:35 PM FISH CLEANER): Assessment: Karans CBC with a low hemoglobin [...] persists Assessment & Plan (12/24/2021 1:33 PM FISH CLEANER): Assessment: Julio César CBC with a low hemoglobin (8.8) and low MCV is concerning for iron deficiency anemia. This is likely due to inadequate dietary intake of iron. Plan: - start MVI with iron - nutrition consultation Assessment & Plan (12/23/2021 10:41 PM FISH CLEANER): Assessment: Julio César CBC with a low [...] 01/06/2022 Assessment & Plan (12/26/2021 4:17 PM FISH CLEANER): Assessment: Karans initial UA at the outside hospital was concerning for a UTI with nitrites and some WBC with repeat UA at [facility] negative for nitrites but with evidence of pyuria with WBC and urine culture grew >100k cfus e coli. Plan to treat with course of nitrofurantoin. Plan: - Prescription for course of nitrofurantoin provided to continue at discharge Assessment & Plan (12/25/2021 1:35 PM FISH CLEANER): Assessment: Karans initial UA at the outside hospital was concerning for a UTI with nitrites and some WBC, however, there were many squamous epithelial cells present which makes the specimen less reliable. She is not currently complaining of symptoms of a UTI. Repeat UA here was negative for LE and nitrites. Plan: - continue to monitor - Urine culture at [facility] pending Assessment & Plan (12/24/2021 1:33 PM FISH CLEANER): Assessment: Charles's initial UA at the outside hospital was concerning for a UTI, however, there were many squamous epithelial cells present which makes the specimen less reliable. She is not currently complaining of symptoms of a UTI. Repeat UA here was negative for LE and nitrites. Plan: - continue to monitor Assessment & Plan (12/23/2021 10:42 PM FISH CLEANER): Assessment: Charles's initial UA at the outside [...] on file Legal Sex Female 5:44 AM FISH CLEANER Gender Identity Not on file Sexual Orientation Not on file Last Filed Vital Signs Vital Sign Reading Time Taken Comments Blood Pressure 122/55 11/13/2024 10:36 AM FISH CLEANER Pulse 71 11/13/2024 10:36 AM FISH CLEANER Temperature 36.3 C (97.4 F) 03/05/2022 2:12 PM CDT Respiratory Rate 16 12/31/2021 1:57 PM FISH CLEANER Oxygen Saturation 100% 12/31/2021 1:57 PM FISH CLEANER Inhaled Oxygen Concentration - - Weight 113.4 kg (250 lb) 11/13/2024 10:36 AM FISH CLEANER Height 168.9 cm (5' 6.5) 11/13/2024 10:36 AM CS T Body Mass Index 39.75 11/13/2024 10:36 AM FISH CLEANER Plan of Treatment Health Maintenance Due Date [...] Where can I go for more information? [place] [employer] ( ) www.aap.org HealthyChildren.org www.healthychildren.org U.S. Department of Health and Human Services www.hhs.gov Website and free downloadable frankie for smartphones: http://www.Igloo Vision/ Use safety retraint in car Lifestyle On track( 022 2:08 PM CDT) No Bailey Tomlinson RN Procedures Procedure Name Priority Date/Time Associated Diagnosis Comments CHLAMYDIA + GC AMPLIFIED PROBE Routine 01/27/2022 4:24 PM FISH CLEANER Hx of chlamydia infection HIV-1 HIV-2 ANTIBODY + HIV P24 AG PANEL AM Draw 12/28/2021 6:25 AM FISH CLEANER from Last 3 Months or Most Recently Relevant to Health Maintenance Results * CHLAMYDIA + GC AMPLIFIED PROBE (01/27/2022 4:24 PM FISH CLEANER) Chlamydia KADIE Urine Negative Negative [facility] INSURANCE BILL GC KADIE Urine Negative Negative [facility] INSURANCE BILL Microbiology URINE / Unknown 01/27/2022 4 :24 PM FISH CLEANER 01/28/2022 Narrative Resulting Agency Comment Lab Testing performed at: [address] [id number] Juliet Agustin MD LAB - MICROBIOLOGY ORDERABLES Final Result [facility] INSURANCE BILL [address] [place] [address] * HIV-1 HIV-2 ANTIBODY + HIV P24 AG PANEL (12/28/2021 6:25 AM FISH CLEANER) Pathologist [facility] HIV1/2 Ab + P24 Ag Non Reactive Non Reactive 12/28/2021 6:30 PM FISH CLEANER [facility] Blood BLOOD SPECIMEN / Unknown Lab Venipuncture / Unknown 12/28/2021 6:25 AM FISH CLEANER 12/28/2021 7:30 AM FISH CLEANER Narrative [facility] - 12/28/2021 6:30 PM FISH CLEANER No Laboratory evidence of HIV infection. Faith Sommer MD LAB - CHEMISTRY ORDERABLES Final Result [facility] [address] [place] [address] from Last 3 Months or Most Recently Relevant to Health Maintenance Insurance SELF PAY NO INSURANCE Member Subscriber Plan / Payer (Ef fective for All Dates) Name:Charles An Member ID:Not on file Relation to Subscriber:Not on file Name:CHARLES AN Subscriber ID:Not on file (Home) Address: [facility] [address] [place] [address] Payer ID:Not on file Group ID:Not on file Type:Self Pay Address: [place], [place] * Guarantor: CHARLES AN Account Type Relation to Patient Date of Phone Billing Address Personal/Family [address] [place] [address] Advance Directives * Full Code (Latest Code Status on File) Date Activated Date Inactivated Comments 12/26/2021 4:57 PM 12/31/2021 5:12 PM * Full Code Date Activated Date Inactivated Comments 12/23/2021 8:34 PM 12/26/2021 4:45 PM
[2025-06-05] MEDS: POLYMYXIN/TRIMETHOPRIM OPHTH 10 ML DROPS 1 DROP EACH EYE (07:52)
--- NOTE | 2025-06-05 12:54 | ED.EYEPROB ---
HPI - Eye Problem General Chief complaint: Eye Problems Stated complaint: eye swelling, itching, red, blurry vision Time Seen by Provider: 06/05/25 06:58 History of Present Illness HPI Narrative: Patient came home from work a few days ago and noticed her eyes felt irritated/gritty; now she wakes with crusting both eyes and they are red and irritated and tearing. Related Data Allergies Allergy/AdvReac Type Severity Reaction Status Date / Time No Known Allergies Allergy Verified 04/30/25 14:45 Review of Systems Review of Systems: All systems reviewed & are unremarkable except as noted in HPI and below PMFSH Past Medical History Medical History delivery delivered Healthy female adult Surgical History Surgical History History of delivery Family History Family History Other Patient denies significant medical history Social History Social History Smoking status: Current every day smoker Tobacco type: e-cigarettes/vaping Second hand tobacco smoke exposure: No Alcohol intake: never Substance use: never Substance use type: does not use Do You Feel Safe in your Home?: Yes Lack of Transportation: No Lack of Food: Never True Current Housing: I Have Housing Concerned About Future Housing: No Difficulty Paying Gas/Electric Bills: No Difficulty Paying for Meds: No Currently Unemployed: No Education: High School Diploma/GED Difficulty w/ Childcare or Family Care: No Living arrangements: with family Occupation/Education: occupation Additional occupation/education comments: works at [employer] Gender identity (if verbalized by the patient): Female Sexual Orientation (if Verbalized by the Patient): Straight or Heterosexual Spiritual care concerns: No Exam Narrative: EXAMINATION OF ORGAN SYSTEMS/BODY AREAS: Constitutional: Vital signs per nursing GENERAL:[No acute distress, non-toxic appearing.] HEAD: Normal with no signs of head trauma. EYES: EOMI, slightly injected conjunctiva; PERRL; no fluorescein uptake; crusts bilateral eyelids ENT: Hearing grossly intact LUNGS: Nonlabored breathing. HEART: [Regular rate and rhythm] ABD: [Soft], [nontender to palpation] EXT: Normal range of motion SKIN: [No rashes or lesions.] NEURO: [Alert and oriented x 3. No gross focal sensory or strength deficits.] PSYCH: Normal affect Course Vital Signs Vital signs: Vital Signs Temperature 98.4 F 06/05/25 06:36 Pulse Rate 89 06/05/25 06:36 Respiratory Rate 15 06/05/25 06:36 Blood Pressure 131/69 06/05/25 06:36 Pulse Oximetry 99 06/05/25 06:36 Oxygen Delivery Room Air 06/05/25 06:36 Temperature 98.4 F 06/05/25 06:36 Pulse Rate 89 06/05/25 06:36 Respiratory Rate 06/05/25 06:36 Blood Pressure 131/69 06/05/25 06:36 Pulse Oximetry 99 06/05/25 06:36 Oxygen Delivery Room Air 06/05/25 06:36 MDM - Eye Problem MDM Narrative Medical decision making narrative: 20F p/w s/s of conjunctivitis. Eye exam without fluorescein uptake, VA grossly intact (patient is supposed to wear glasses but isn't wearing them now). F/u to ophtho given and rx for abx drops w/ return precautions Discharge Plan Discharge Clinical Impression: Conjunctivitis Patient Disposition: Home Condition: Stable Instructions: Conjunctivitis (ED) Additional Instructions: Please follow up with an eye doctor; you can always return for any further issues especially if you develop more pain, swelling to the eyelids or pain with eye movement, or changes in vision. Patient Language: Martiniquais Prescriptions: New polymyxin B sulf-trimethoprim 10,000 unit- 1 mg/mL drops 1 drp EACH EYE QID 5 Days Qty: 10 0RF No Action triamcinolone acetonide 0.025 % lotion 1 applic topical BID Qty: 60 0RF ferrous sulfate 324 mg (65 mg iron) tablet,delayed release (DR/EC) 324 mg PO DAILY Qty: 30 3RF M- Plus 27 mg iron- 1 mg tablet See Rx Instructions .ROUTE .COMPLEX Qty: 30 3RF Dose Instruction: TAKE 1 TABLET BY MOUTH EVERY DAY Rx Instructions: TAKE 1 TABLET BY MOUTH EVERY DAY Follow-up/Referrals: [facility] [place] [Outside] - 2 Days UNKNOWN,DOCTOR [Primary Care Provider] -
== END 2025-06-05 07:55 | disposition home or self-care (01) ==
PROVIDERS: Emergency Provider Emergency Medicine
DX: H10.9 Unspecified conjunctivitis (principal); F17.290 Nicotine dependence, other tobacco product, uncomplicated
CPT/HCPCS: 99283; A9270

== ENCOUNTER 2025-06-08 22:55 | Emergency (ER) | payer OTHER, SELFPAY ==
--- OUTSIDE RECORDS SUMMARY | 2025-06-08 22:57 | XMS_ITS ---
Author Organization Unknown Plan of Treatment Description Planned Activity Planned Timing [facility] is a provider organization who partners directly with Health Plans and provides integrated primary care, behavioral health, and social work associate for an attributed population Letter encounter to patientTelephone encounter Marco A 2024Jul 2024 Encounters Encounter Type Performer Location Encounter Date Encoun ter Notes virtual - - [id number] no notes virtual - - [id number] no notes Patient Care team information Name Category Status Period Participants - - Proposed period not known - - - Proposed period not known -
--- OUTSIDE RECORDS SUMMARY | 2025-06-08 22:57 | XMS_ITS | Clinical Summary ---
Author Organization [facility] Address [address] [place] [address] Care Team Providers Care Sales Broker Name Role Phone Unavailable Primary Care Provider Unavailabl e Source Comments [facility],non-owned Affiliates and Associated Physician Practices is amultiple site organization consisting of ambulatory clinics and hospital sitesin [place], [place], [place] and [place]. This disclosure is being madepursuant to the Care Everywhere program and may not contain all information available regarding this patient. Last updated 18.[employer] Allergies No known active allergies Medications * [...] 12/23/2021 Assessment & Plan (12/26/2021 4:15 PM MIRROR INSPECTOR): Assessment: Charles is a 16 year old [...] afternoon Assessment & Plan (12/25/2021 1:34 PM MIRROR INSPECTOR): Assessment: Charles is a 16 year old [...] facility Assessment & Plan (12/24/2021 3:46 PM MIRROR INSPECTOR): Assessment: Charles is a 16 year old [...] consultation Assessment & Plan (12/23/2021 10:40 PM MIRROR INSPECTOR): Assessment: Charles is a 16 year old [...] and acetaminophen levels. Plan: - admit to [facility] team, Dr. Bob - on admission, obtaining CBC, CMP, Acetaminophen level, PT/PTT/INR, CK - mIVF - regular diet - vitals q4h - I/Os - central intake consultation when medically cleared Iron deficiency anemia 12/23/2021 Assessment & Plan (12/26/2021 4:15 PM MIRROR INSPECTOR): Assessment: Karans CBC with a low hemoglobin [...] persists Assessment & Plan (12/25/2021 1:35 PM MIRROR INSPECTOR): Assessment: Karans CBC with a low hemoglobin [...] persists Assessment & Plan (12/24/2021 1:33 PM MIRROR INSPECTOR): Assessment: Julio César CBC with a low hemoglobin (8.8) and low MCV is concerning for iron deficiency anemia. This is likely due to inadequate dietary intake of iron. Plan: - start MVI with iron - nutrition consultation Assessment & Plan (12/23/2021 10:41 PM MIRROR INSPECTOR): Assessment: Julio César CBC with a low [...] 01/06/2022 Assessment & Plan (12/26/2021 4:17 PM MIRROR INSPECTOR): Assessment: Karans initial UA at the outside hospital was concerning for a UTI with nitrites and some WBC with repeat UA at [facility] negative for nitrites but with evidence of pyuria with WBC and urine culture grew >100k cfus e coli. Plan to treat with course of nitrofurantoin. Plan: - Prescription for course of nitrofurantoin provided to continue at discharge Assessment & Plan (12/25/2021 1:35 PM MIRROR INSPECTOR): Assessment: Karans initial UA at the outside hospital was concerning for a UTI with nitrites and some WBC, however, there were many squamous epithelial cells present which makes the specimen less reliable. She is not currently complaining of symptoms of a UTI. Repeat UA here was negative for LE and nitrites. Plan: - continue to monitor - Urine culture at [facility] pending Assessment & Plan (12/24/2021 1:33 PM MIRROR INSPECTOR): Assessment: Charles's initial UA at the outside hospital was concerning for a UTI, however, there were many squamous epithelial cells present which makes the specimen less reliable. She is not currently complaining of symptoms of a UTI. Repeat UA here was negative for LE and nitrites. Plan: - continue to monitor Assessment & Plan (12/23/2021 10:42 PM MIRROR INSPECTOR): Assessment: Charles's initial UA at the outside [...] on file Legal Sex Female 5:44 AM MIRROR INSPECTOR Gender Identity Not on file Sexual Orientation Not on file Last Filed Vital Signs Vital Sign Reading Time Taken Comments Blood Pressure 122/55 11/13/2024 10:36 AM MIRROR INSPECTOR Pulse 71 11/13/2024 10:36 AM MIRROR INSPECTOR Temperature 36.3 C (97.4 F) 03/05/2022 2:12 PM CDT Respiratory Rate 16 12/31/2021 1:57 PM MIRROR INSPECTOR Oxygen Saturation 100% 12/31/2021 1:57 PM MIRROR INSPECTOR Inhaled Oxygen Concentration - - Weight 113.4 kg (250 lb) 11/13/2024 10:36 AM MIRROR INSPECTOR Height 168.9 cm (5' 6.5) 11/13/2024 10:36 AM CS T Body Mass Index 39.75 11/13/2024 10:36 AM MIRROR INSPECTOR Plan of Treatment Health Maintenance Due Date [...] Website and free downloadable frankie for smartphones: http://www.[employer]/ Use safety retraint in car Lifestyle On track( 022 2:08 PM CDT) No Bailey Tomlinson RN Procedures Procedure Name Priority Date/Time Associated Diagnosis Comments CHLAMYDIA + GC AMPLIFIED PROBE Routine 01/27/2022 4:24 PM MIRROR INSPECTOR Hx of chlamydia infection HIV-1 HIV-2 ANTIBODY + HIV P24 AG PANEL AM Draw 12/28/2021 6:25 AM MIRROR INSPECTOR from Last 3 Months or Most Recently Relevant to Health Maintenance Results * CHLAMYDIA + GC AMPLIFIED PROBE (01/27/2022 4:24 PM MIRROR INSPECTOR) Chlamydia KADIE Urine Negative Negative [facility] INSURANCE BILL GC KADIE Urine Negative Negative [facility] INSURANCE BILL Microbiology URINE / Unknown 01/27/2022 4 :24 PM MIRROR INSPECTOR 01/28/2022 Narrative Resulting Agency Comment Lab Testing performed at: [address] [phone] Juliet Agustin MD LAB - MICROBIOLOGY ORDERABLES Final Result [facility] INSURANCE BILL [address] [place] [address] * HIV-1 HIV-2 ANTIBODY + HIV P24 AG PANEL (12/28/2021 6:25 AM MIRROR INSPECTOR) Pathologist [facility] HIV1/2 Ab + P24 Ag Non Reactive Non Reactive 12/28/2021 6:30 PM MIRROR INSPECTOR [facility] Blood BLOOD SPECIMEN / Unknown Lab Venipuncture / Unknown 12/28/2021 6:25 AM MIRROR INSPECTOR 12/28/2021 7:30 AM MIRROR INSPECTOR Narrative [facility] - 12/28/2021 6:30 PM MIRROR INSPECTOR No Laboratory evidence of HIV infection. Faith Sommer MD LAB - CHEMISTRY ORDERABLES Final Result [facility] [address] [place] [address] from Last 3 Months or Most Recently Relevant to Health Maintenance Insurance SELF PAY NO INSURANCE Member Subscriber Plan / Payer (Ef fective for All Dates) Name:Charles An Member ID:Not on file Relation to Subscriber:Not on file Name:CHARLES AN Subscriber ID:Not on file (Home) Address: [facility] [address] [place] [address] Payer ID:Not on file Group ID:Not on file Type:Self Pay Address: [place], [place] * Guarantor: CHARLES AN Account Type Relation to Patient Date of Phone Billing Address Personal/Family [address] [place] [address] Advance Directives * Full Code (Latest Code Status on File) Date Activated Date Inactivated Comments 12/26/2021 4:57 PM 12/31/2021 5:12 PM * Full Code Date Activated Date Inactivated Comments 12/23/2021 8:34 PM 12/26/2021 4:45 PM
[2025-06-08 22:58] VITALS: BP 126/84; PULSE 80; RESP 16; TEMP 37.1; O2SAT 98
--- NOTE | 2025-06-09 01:36 | PC.NURSE ---
Patient left without being seen. MD notified.
--- OUTSIDE RECORDS SUMMARY | 2025-06-09 01:42 | XMS_ITS | Clinical Summary ---
Author Organization [facility] Address [address] [place] [address] Care Team Providers Care Title Attorney Name Role Phone Unavailable Primary Care Provider Unavailabl e Source Comments [facility],non-owned Affiliates and Associated Physician Practices is amultiple site organization consisting of ambulatory clinics and hospital sitesin [place], [place], [place] and [place]. This disclosure is being madepursuant to the Care Everywhere program and may not contain all information available regarding this patient. Last updated 18.[employer] Allergies No known active allergies Medications * [...] 12/23/2021 Assessment & Plan (12/26/2021 4:15 PM INDUSTRIAL ECOLOGIST): Assessment: Charles is a 16 year old [...] afternoon Assessment & Plan (12/25/2021 1:34 PM INDUSTRIAL ECOLOGIST): Assessment: Charles is a 16 year old [...] facility Assessment & Plan (12/24/2021 3:46 PM INDUSTRIAL ECOLOGIST): Assessment: Charles is a 16 year old [...] consultation Assessment & Plan (12/23/2021 10:40 PM INDUSTRIAL ECOLOGIST): Assessment: Charles is a 16 year old [...] and acetaminophen levels. Plan: - admit to [facility] team, Dr. Bob - on admission, obtaining CBC, CMP, Acetaminophen level, PT/PTT/INR, CK - mIVF - regular diet - vitals q4h - I/Os - central intake consultation when medically cleared Iron deficiency anemia 12/23/2021 Assessment & Plan (12/26/2021 4:15 PM INDUSTRIAL ECOLOGIST): Assessment: Karans CBC with a low hemoglobin [...] persists Assessment & Plan (12/25/2021 1:35 PM INDUSTRIAL ECOLOGIST): Assessment: Karans CBC with a low hemoglobin [...] persists Assessment & Plan (12/24/2021 1:33 PM INDUSTRIAL ECOLOGIST): Assessment: Julio César CBC with a low hemoglobin (8.8) and low MCV is concerning for iron deficiency anemia. This is likely due to inadequate dietary intake of iron. Plan: - start MVI with iron - nutrition consultation Assessment & Plan (12/23/2021 10:41 PM INDUSTRIAL ECOLOGIST): Assessment: Julio César CBC with a low [...] 01/06/2022 Assessment & Plan (12/26/2021 4:17 PM INDUSTRIAL ECOLOGIST): Assessment: Karans initial UA at the outside hospital was concerning for a UTI with nitrites and some WBC with repeat UA at [facility] negative for nitrites but with evidence of pyuria with WBC and urine culture grew >100k cfus e coli. Plan to treat with course of nitrofurantoin. Plan: - Prescription for course of nitrofurantoin provided to continue at discharge Assessment & Plan (12/25/2021 1:35 PM INDUSTRIAL ECOLOGIST): Assessment: Karans initial UA at the outside hospital was concerning for a UTI with nitrites and some WBC, however, there were many squamous epithelial cells present which makes the specimen less reliable. She is not currently complaining of symptoms of a UTI. Repeat UA here was negative for LE and nitrites. Plan: - continue to monitor - Urine culture at [facility] pending Assessment & Plan (12/24/2021 1:33 PM INDUSTRIAL ECOLOGIST): Assessment: Charles's initial UA at the outside hospital was concerning for a UTI, however, there were many squamous epithelial cells present which makes the specimen less reliable. She is not currently complaining of symptoms of a UTI. Repeat UA here was negative for LE and nitrites. Plan: - continue to monitor Assessment & Plan (12/23/2021 10:42 PM INDUSTRIAL ECOLOGIST): Assessment: Charles's initial UA at the outside [...] on file Legal Sex Female 5:44 AM INDUSTRIAL ECOLOGIST Gender Identity Not on file Sexual Orientation Not on file Last Filed Vital Signs Vital Sign Reading Time Taken Comments Blood Pressure 122/55 11/13/2024 10:36 AM INDUSTRIAL ECOLOGIST Pulse 71 11/13/2024 10:36 AM INDUSTRIAL ECOLOGIST Temperature 36.3 C (97.4 F) 03/05/2022 2:12 PM CDT Respiratory Rate 16 12/31/2021 1:57 PM INDUSTRIAL ECOLOGIST Oxygen Saturation 100% 12/31/2021 1:57 PM INDUSTRIAL ECOLOGIST Inhaled Oxygen Concentration - - Weight 113.4 kg (250 lb) 11/13/2024 10:36 AM INDUSTRIAL ECOLOGIST Height 168.9 cm (5' 6.5) 11/13/2024 10:36 AM CS T Body Mass Index 39.75 11/13/2024 10:36 AM INDUSTRIAL ECOLOGIST Plan of Treatment Health Maintenance Due Date [...] Where can I go for more information? [place] [employer] ( ) www.aap.org HealthyChildren.org www.healthychildren.org U.S. Department of Health and Human Services www.hhs.gov Website and free downloadable frankie for smartphones: http://www.[employer]/ Use safety retraint in car Lifestyle On track( 022 2:08 PM CDT) No Bailey Tomlinson RN Procedures Procedure Name Priority Date/Time Associated Diagnosis Comments CHLAMYDIA + GC AMPLIFIED PROBE Routine 01/27/2022 4:24 PM INDUSTRIAL ECOLOGIST Hx of chlamydia infection HIV-1 HIV-2 ANTIBODY + HIV P24 AG PANEL AM Draw 12/28/2021 6:25 AM INDUSTRIAL ECOLOGIST from Last 3 Months or Most Recently Relevant to Health Maintenance Results * CHLAMYDIA + GC AMPLIFIED PROBE (01/27/2022 4:24 PM INDUSTRIAL ECOLOGIST) Chlamydia KADIE Urine Negative Negative [facility] INSURANCE BILL GC KADIE Urine Negative Negative [facility] INSURANCE BILL Microbiology URINE / Unknown 01/27/2022 4 :24 PM INDUSTRIAL ECOLOGIST 01/28/2022 Narrative Resulting Agency Comment Lab Testing performed at: [address] [phone] Juliet Agustin MD LAB - MICROBIOLOGY ORDERABLES Final Result [facility] INSURANCE BILL [address] [place] [address] * HIV-1 HIV-2 ANTIBODY + HIV P24 AG PANEL (12/28/2021 6:25 AM INDUSTRIAL ECOLOGIST) Pathologist [facility] HIV1/2 Ab + P24 Ag Non Reactive Non Reactive 12/28/2021 6:30 PM INDUSTRIAL ECOLOGIST [facility] Blood BLOOD SPECIMEN / Unknown Lab Venipuncture / Unknown 12/28/2021 6:25 AM INDUSTRIAL ECOLOGIST 12/28/2021 7:30 AM INDUSTRIAL ECOLOGIST Narrative [facility] - 12/28/2021 6:30 PM INDUSTRIAL ECOLOGIST No Laboratory evidence of HIV infection. Faith Sommer MD LAB - CHEMISTRY ORDERABLES Final Result [facility] [address] [place] [address] from Last 3 Months or Most Recently Relevant to Health Maintenance Insurance SELF PAY NO INSURANCE Member Subscriber Plan / Payer (Ef fective for All Dates) Name:Charles An Member ID:Not on file Relation to Subscriber:Not on file Name:CHARLES AN Subscriber ID:Not on file (Home) Address: [facility] [address] [place] [address] Payer ID:Not on file Group ID:Not on file Type:Self Pay Address: [place], [place] * Guarantor: CHARLES AN Account Type Relation to Patient Date of Phone Billing Address Personal/Family [address] [place] [address] Advance Directives * Full Code (Latest Code Status on File) Date Activated Date Inactivated Comments 12/26/2021 4:57 PM 12/31/2021 5:12 PM * Full Code Date Activated Date Inactivated Comments 12/23/2021 8:34 PM 12/26/2021 4:45 PM
--- OUTSIDE RECORDS SUMMARY | 2025-06-09 01:42 | XMS_ITS ---
Author Organization Unknown Plan of Treatment Description Planned Activity Planned Timing [facility] is a provider organization who partners directly with Health Plans and provides integrated primary care, behavioral health, and social work manager for an attributed population Letter encounter to patientTelephone encounter Marco A 2024Jul 2024 Encounters Encounter Type Performer Location Encounter Date Encoun ter Notes virtual - - [id number] no notes virtual - - [id number] no notes Patient Care team information Name Category Status Period Participants - - Proposed period not known - - - Proposed period not known -
== END 2025-06-09 02:06 | disposition left against medical advice (07) ==
DX: R21 Rash and other nonspecific skin eruption (principal)
CPT/HCPCS: 99199

== ENCOUNTER 2025-09-10 13:22 | Outpatient (CLI) | payer OTHER, SELFPAY ==
[2025-09-10 14:08] LABS: Hematocrit 34.3 % (37.0-47.0); Hemoglobin 10.4 g/dL (12.0-15.0); Immature Granulocyte Percent A 0.5 % (0-0.5); Lymphocytes Absolute Auto 1.41 K/mm3 (0.9-3.2); Mean Corpuscular HGB Conc 30.3 g/dl (32-36); Mean Corpuscular Hemoglobin 21.8 pg (26-34); Mean Corpuscular Volume 71.9 fl (80-100); Nucleated Red Blood Cells Absolute Auto 0.000 K/mm3 (0.0-0.012); Nucleated Red Blood Cells Perc 0.0 % (0.0-0.2); Platelet Count Result 351 k/mm3 (150-375); Red Blood Count 4.77 M/mm3 (4.2-5.4); White Blood Count 7.7 K/mm3 (4.5-10.0)
[2025-09-10 14:20] LABS: Hemoglobin A1C 5.1 % (<5.7)
[2025-09-10 14:56] LABS: Thyroid Stimulating Hormone Reflex 2.380 uIU/mL (0.465-4.68)
--- OUTSIDE RECORDS SUMMARY | 2025-09-10 15:10 | XMS_ITS | Clinical Summary ---
Author Organization [facility] Address [address] [place] [address] Care Team Providers Care Softlines Supervisor Name Role Phone Unavailable Primary Care Provider Unavailabl e Source Comments [facility],non-owned Affiliates and Associated Physician Practices is amultiple site organization consisting of ambulatory clinics and hospital sitesin [place], [place], [place] and [place]. This disclosure is being madepursuant to the Care Everywhere program and may not contain all information available regarding this patient. Last updated 18.[employer] Allergies No known active allergies Medications * [...] 12/23/2021 Assessment & Plan (12/26/2021 4:15 PM FANCY PACKER): Assessment: Jess is a 16 year old [...] afternoon Assessment & Plan (12/25/2021 1:34 PM FANCY PACKER): Assessment: Jess is a 16 year old [...] facility Assessment & Plan (12/24/2021 3:46 PM FANCY PACKER): Assessment: Jess is a 16 year old [...] consultation Assessment & Plan (12/23/2021 10:40 PM FANCY PACKER): Assessment: Jess is a 16 year old [...] Plan: - admit to [facility] team, Dr. Bob - on admission, obtaining CBC, CMP, Acetaminophen level, PT/PTT/INR, CK - mIVF - regular diet - vitals q4h - I/Os - central intake consultation when medically cleared Iron deficiency anemia 12/23/2021 Assessment & Plan (12/26/2021 4:15 PM FANCY PACKER): Assessment: Karans CBC with a low hemoglobin [...] persists Assessment & Plan (12/25/2021 1:35 PM FANCY PACKER): Assessment: Karans CBC with a low hemoglobin [...] persists Assessment & Plan (12/24/2021 1:33 PM FANCY PACKER): Assessment: Julio César CBC with a low hemoglobin (8.8) and low MCV is concerning for iron deficiency anemia. This is likely due to inadequate dietary intake of iron. Plan: - start MVI with iron - nutrition consultation Assessment & Plan (12/23/2021 10:41 PM FANCY PACKER): Assessment: Julio César CBC with a low hemoglobin (8.8) and low MCV is concerning for iron deficiency anemia. This is likely due to inadequate dietary intake of iron. Plan: - consider iron supplements when medically cleared - consider nutrition consultation Mild intermittent asthma without complication Anthony-Schlatter's disease, right 08/17/2018 BMI (body mass index), pediatric, 95-99% for age 0403/04/2015 Resolved Problems Problem Noted Date Diagnosed Date Resolved Date Suicidal ideation 12/29/2021 12/31/2021 UTI (urinary tract infection) 12/23/2021 01/06/2022 Assessment & Plan (12/26/2021 4:17 PM FANCY PACKER): Assessment: Karans initial UA at the outside hospital was concerning for a UTI with nitrites and some WBC with repeat UA at [facility] negative for nitrites but with evidence of pyuria with WBC and urine culture grew >100k cfus e coli. Plan to treat with course of nitrofurantoin. Plan: - Prescription for course of nitrofurantoin provided to continue at discharge Assessment & Plan (12/25/2021 1:35 PM FANCY PACKER): Assessment: Karans initial UA at the outside hospital was concerning for a UTI with nitrites and some WBC, however, there were many squamous epithelial cells present which makes the specimen less reliable. She is not currently complaining of symptoms of a UTI. Repeat UA here was negative for LE and nitrites. Plan: - continue to monitor - Urine culture at [facility] pending Assessment & Plan (12/24/2021 1:33 PM FANCY PACKER): Assessment: Jess's initial UA at the outside hospital was concerning for a UTI, however, there were many squamous epithelial cells present which makes the specimen less reliable. She is not currently complaining of symptoms of a UTI. Repeat UA here was negative for LE and nitrites. Plan: - continue to monitor Assessment & Plan (12/23/2021 10:42 PM FANCY PACKER): Assessment: Jess's initial UA at the outside [...] Date Recorded PHQ2 TOTAL SCORE 3 04/30/2021 Comments No Sex and Gender Information Value Date Recorded Sex Assigned at Not on file Legal Sex Female 5:44 AM FANCY PACKER Gender Identity Not on file Sexual Orientation Not on file Last Filed Vital Signs Vital Sign Reading Time Taken Comments Blood Pressure 122/55 11/13/2024 10:36 AM FANCY PACKER Pulse 71 11/13/2024 10:36 AM FANCY PACKER Temperature 36.3 C (97.4 F) 03/05/2022 2:12 PM CDT Respiratory Rate 16 12/31/2021 1:57 PM FANCY PACKER Oxygen Saturation 100% 12/31/2021 1:57 PM FANCY PACKER Inhaled Oxygen Concentration - - Weight 113.4 kg (250 lb) 11/13/2024 10:36 AM FANCY PACKER Height 168.9 cm (5' 6.5) 11/13/2024 10:36 AM CS T Body Mass Index 39.75 11/13/2024 10:36 AM FANCY PACKER Plan of Treatment Health Maintenance Due Date Last Done Comments PNEUMOCOCCAL VACCINE (1 of 1 - PPSV23, PCV20, or PCV21) 2011 03/04/2006, 2005, 2005, Additional history exists MENINGOCOCCAL (Group B) VACC INE SHARED DECISION-MAKING (1 of 2 - Standard) 2021 CHLAMYDIA/GONORRHEA SCREENING 01/27/2023 01/27/2022, 12/28/2021 HEPATITIS C SCREENING 02/21/2023 DEPRESSION SCREENING 11/22/2024 DTAP/TDAP/TD VACCINES (7 - T d or Tdap) 03/04/2025 03/04/2015, 06/02/2010, 09/27/2006, Additional history exists COVID-19 VACCINE (3 - 2024-2 6 season) 2025 07/10/2021, 06/19/2021 INFLUENZA VACCINE (#1) 2025 ZOSTER VACCINE (1 of 2) 2055 HEPATITIS B VACCINE Completed 2005, 2005, 2005, Additional history exists HIB VACCINE Completed 07/13/2006, 08/23, 2005, Additional history exists MENINGOCOCCAL GROUPS A/C/Y/W VACCINE Completed 04/30/2021, 03/16/2016 HIV SCREENING Completed 12/28/2021 HPV VACCINE Discontinued Goals Goal Patient Goal Type Associated Problems [...] Where can I go for more information? [place] [employer] ( ) www.aap.org HealthyChildren.org www.healthychildren.org U.S. Department of Health and Human Services www.hhs.gov Website and free downloadable frankie for smartphones: http://www.Skimlinks/ Use safety retraint in car Lifestyle On track( 022 2:08 PM CDT) No Bailey Tomlinson RN Procedures Procedure Name Priority Date/Time Associated Diagnosis Comments CHLAMYDIA + GC AMPLIFIED PROBE Routine 01/27/2022 4:24 PM FANCY PACKER Hx of chlamydia infection HIV-1 HIV-2 ANTIBODY + HIV P24 AG PANEL AM Draw 12/28/2021 6:25 AM FANCY PACKER from Last 3 Months or Most Recently Relevant to Health Maintenance Results * CHLAMYDIA + GC AMPLIFIED PROBE (01/27/2022 4:24 PM FANCY PACKER) Chlamydia KADIE Urine Negative Negative [facility] INSURANCE BILL GC KADIE Urine Negative Negative [facility] INSURANCE BILL Microbiology URINE / Unknown 01/27/2022 4 :24 PM FANCY PACKER 01/28/2022 Narrative Resulting Agency Comment Lab Testing performed at: [address] [id number] Juliet Agustin MD LAB - MICROBIOLOGY ORDERABLES Final Result [facility] INSURANCE BILL [address] [place] [address] * HIV-1 HIV-2 ANTIBODY + HIV P24 AG PANEL (12/28/2021 6:25 AM FANCY PACKER) HIV1/2 Ab + P24 Ag Non Reactive Non Reactive 12/28/2021 6:30 PM FANCY PACKER [facility] Blood BLOOD SPECIMEN / Unknown Lab Venipuncture / Unknown 12/28/2021 6:25 AM FANCY PACKER 12/28/2021 7:30 AM FANCY PACKER Narrative [facility] - 12/28/2021 6:30 PM FANCY PACKER No Laboratory evidence of HIV infection. Faith Sommer MD LAB - CHEMISTRY ORDERABLES Final Result [facility] [address] [place] [address] from Last 3 Months or Most Recently Relevant to Health Maintenance Insurance [facility] SELF PAY NO INSURANCE Member Subscriber Plan / Payer (Ef fective for All Dates) Name:Jess An Member ID:Not on file Relation to Subscriber:Not on file Name:JESS AN Subscriber ID:Not on file (Home) Address: [facility] [address] [place], [place] [id number] Payer ID:Not on file Group ID:Not on file Type:Self Pay Address: [place], [place] [facility] * Guarantor: JESS AN Account Type Relation to Patient Date of Phone Billing Address Personal/Family [address] [place] [address] Advance Directives * Full Code (Latest Code Status on File) Date Activated Date Inactivated Comments 12/26/2021 4:57 PM 12/31/2021 5:12 PM * Full Code Date Activated Date Inactivated Comments 12/23/2021 8:34 PM 12/26/2021 4:45 PM
[2025-09-10 15:15] LABS: Anisocytosis 2+; Band Neutrophils Percent 0 % (0-6); Hypochromasia 1+; Microcytosis 2+ (NORMAL)
[2025-09-10 15:17] LABS: Alanine Aminotransferase 25 U/L (6-35); Albumin Level 4.3 g/dL (3.5-5.1); Alkaline Phosphatase 113 U/L (38-126); Anion Gap 8 mmol/L (4-12); Aspartate Amino Transferase 24 U/L (14-36); Bilirubin,Total 0.4 mg/dL (0.2-1.3); Blood Urea Nitrogen 8 mg/dL (7-17); Calcium 9.0 mg/dL (8.4-10.2); Carbon Dioxide 26 mmol/L (22-30); Chloride 105 mmol/L (98-107); Cholesterol 177 mg/dL (0-200); Estimated Glomerular Filt Rate > 60; Glucose 100 mg/dL (65-110); HDL Direct 58 mg/dL; Potassium 3.6 mmol/L (3.4-5.0); Sodium 139 mmol/L (137-145); Total Protein 8.0 g/dL (6.3-8.2); Triglycerides 105 mg/dL (<150)
[2025-09-10 15:25] LABS: Schistocytes None Seen
[2025-09-10 16:07] LABS: Add Urine Microscopic? YES; Appearance Urine Cloudy (Clear); Glucose Urine UA Negative (Negative); Leukocyte Esterase Ur Negative LEU/UL (Negative); Need Manual Microscopic Reviewed; Nitrate Urine Negative (Negative); Non Pathogenic Casts 0-2; Specific Grav Ur 1.026 (1.001-1.035)
[2025-09-10 17:13] LABS: Iron 46 ug/dL (37-170)
[2025-09-10 17:23] LABS: Percent Iron Saturation 11 % (20-50)
[2025-09-10 17:50] LABS: Ferritin 8.04 ng/mL (6.24-137)
== END 2025-09-10 13:23 | disposition home or self-care (01) ==
PROVIDERS: Visit Provider Emergency Medicine
DX: Z00.00 Encounter for general adult medical examination without abnormal findings (principal); K31.84 Gastroparesis; R53.83 Other fatigue
CPT/HCPCS: 36415; 80061; 80069; 80076; 81001; 82728; 83036; 83540; 83550; 84443; 85025

== ENCOUNTER 2025-09-25 07:04 | Outpatient (CLI) | payer OTHER, SELFPAY ==
--- NOTE | ~2025-09-25 | US_ITS ---
Examination: US abdomen complete Clinical History: Abd pain . Comparison: Ultrasound and CT 05/20/2025 Technique: Complete abdominal sonography Findings: Liver: Enlarged. Echogenic. No intrahepatic biliary ductal dilatation. Normal hepatopedal flow main portal vein. Common duct: Normal caliber, 3 mm. Gallbladder: Stones. No wall thickening. No pericholecystic fluid. Negative sonographic Blanton's sign per technologist report. Spleen: Unremarkable. Pancreas: Unremarkable. Kidneys: Left kidney pelviectasis. Aorta: No aneurysmal dilatation. Retrohepatic IVC: Unremarkable. IMPRESSION: 1. Left kidney pelviectasis, but mild hydronephrosis not excluded. 2. Gallstones. No evidence of cholecystitis. 3. Hepatomegaly, with steatosis and/or hepatocellular disease. Reviewed, dictated and finalized at location [facility]. [facility] OPER[facility]
== END 2025-09-25 07:05 | disposition home or self-care (01) ==
LOC: ANHIMG 07:06
PROVIDERS: PCP Emergency Medicine; Visit Provider Emergency Medicine
DX: K80.20 Calculus of gallbladder without cholecystitis without obstruction (principal); R16.0 Hepatomegaly, not elsewhere classified
CPT/HCPCS: 76700